=== PATIENT | male | born 1965 | race Caucasian/White ===

== ENCOUNTER 2022-05-27 18:28 | Inpatient (IN) | payer BC, SELFPAY ==
[2022-05-27] VITALS (7 sets, daily range): BP systolic 81–153; BP diastolic 40–77; PULSE 99–170; RESP 18–36; TEMP 36.6; O2SAT 90–95; BMI 46.2
--- NOTE | ~2022-05-27 | XR_ITS ---
EXAMINATION: XR CHEST CLINICAL INFORMATION: Chest pain COMPARISON: 09/09/2019 TECHNIQUE: Frontal view of the chest was obtained. FINDINGS: Low lung volumes. Limited exam also limited from technique. Given this there is no convincing evidence for an acute finding. No obvious failure or infiltrate. There is no effusion. The cardiac silhouette is comparable. The hilar structures do not appear pathologically enlarged. XR/XR chest 1V IMPRESSION: Limited exam. Low lung volumes. No convincing evidence for an acute process.
--- NOTE | ~2022-05-27 | CT_ITS ---
EXAMINATION: CT ANGIOGRAM OF THE CHEST WITH AND WITHOUT CONTRAST (CT PULMONARY ANGIOGRAM FOR PE) CLINICAL INFORMATION: Reason for Exam SOB, tachycardic COMPARISON: None TECHNIQUE: Prior to contrast administration, noncontrast localization images were obtained. Subsequently, multidetector volumetric imaging was performed from the thoracic inlet to below the diaphragms following the administration of 70 mL Omnipaque 350 intravenous contrast. No contrast reaction reported Sagittal, coronal, and MIP oblique sagittal reformatted images were obtained on the CT workstation, uploaded to PACS, and reviewed. This CT examination was performed using dose optimization techniques as appropriate, variously including the following: *Automated exposure control *Adjustment of mA and/or kV according to patient size (this includes techniques or standardized protocols for targeted exams where dose is matched to indication/reason for exam; i.e. extremities or head) *Use of iterative reconstruction technique Total exam dose-length product 653 mGy-cm FINDINGS: QUALITY OF STUDY/CONTRAST BOLUS: Suboptimal. PULMONARY ARTERIES: Significant respiratory motion limits evaluation. No central, main or right upper lobar and left upper and lower lobar pulmonary embolism. Remainder of the lobar and distal vessels are suboptimally evaluated. THORACIC AORTA: No thoracic aortic aneurysm. LUNG: Significant respiratory motion limits evaluation. 4 mm solid right upper lobe pulmonary nodule, 6:217. PLEURA: No pleural effusion or pneumothorax. MEDIASTINUM: Normal heart size. No pericardial effusion. Borderline enlarged mediastinal nodes for example a 1.0 cm short axis right paratracheal node. No evidence of septal bowing or right heart strain. CHEST WALL/AXILLA: No axillary or internal mammary lymphadenopathy. OSSEOUS STRUCTURES: No acute or suspicious osseous abnormality. UPPER ABDOMEN: Unremarkable. No reflux of contrast into the hepatic veins to suggest elevated right heart pressures. CT/CT angio chest PE protocol IMPRESSION: Significant respiratory motion limits evaluation. No central, main or right upper lobar and left upper and lower lobar pulmonary embolism. Remainder of the lobar and distal vessels are suboptimally evaluated. Few borderline enlarged mediastinal nodes of uncertain clinical significance. 4 mm solid right upper lobe pulmonary nodule. Assuming patient has no history of malignancy, recommend follow-up per Fleischner Society recommendations. According to the UPDATED 2017 Fleischner Society recommendations, the advised followup imaging for solid nodules < 6 mm is: LOW RISK PATIENT: No routine follow up. HIGH RISK PATIENT: Optional CT at 12 months.
--- NOTE | 2022-05-27 18:32 | ECG_ITS ---
Test Reason : CHEST PAIN Blood Pressure : / mmHG Vent. Rate : 171 BPM Atrial Rate : 171 BPM P-R Int : 122 ms QRS Dur : 100 ms QT Int : 280 ms P-R-T Axes : 093 109 -51 degrees QTc Int : 472 ms Sinus tachycardia Rightward axis Incomplete right bundle branch block T wave abnormality, consider inferior ischemia Abnormal ECG When compared with ECG of 07-FEB-2016 18:59, Vent. rate has increased BY 77 BPM T wave inversion now evident in Inferior leads Referred By: Joya Kohler Electronically Signed By:ROSALVA FREITAS
--- NOTE | 2022-05-27 18:48 | PC.NURSE ---
Unable to obtain BP in triage area after 3 attempts. No manual cuff available. PT sent back to room with RN awaiting his arrival into the bed aware of his HR. MD aware of HR as well.
--- NOTE | 2022-05-27 18:55 | ECG_ITS ---
Test Reason : TACHYCARDIA Blood Pressure : / mmHG Vent. Rate : 149 BPM Atrial Rate : 000 BPM P-R Int : 000 ms QRS Dur : 112 ms QT Int : 318 ms P-R-T Axes : 000 107 -71 degrees QTc Int : 500 ms Atrial fibrillation with rapid ventricular response Rightward axis Incomplete right bundle branch block ST & T wave abnormality, consider inferior ischemia Abnormal ECG When compared with ECG of 27-MAY-2022 18:35, Atrial fibrillation has replaced Sinus tachycardia Non-specific change in ST segment in Anterior leads Referred By: Joya Kohler Electronically Signed By:ROSALVA FREITAS
[2022-05-27] MEDS: 0.9 % Sodium Chloride 1,000 ML 999 ML IVCONT ×2 (19:03→21:52)
[2022-05-27] MEDS: Metoprolol Tartrate 5 MG/5 ML VIAL IVPUSH ×2 (19:03→20:23)
[2022-05-27 19:08] LABS: MANUAL DIFF FLAG NO
[2022-05-27 19:21] LABS: Basophils Percent Auto 0.3 % (0-2); Eosinophils Percent Auto 0.1 % (0-4); Hematocrit 46.2 % (42.0-52.0); Imm Gran Abs Auto 0.04 X10*3/uL (0.00-0.03); Imm Gran Pct Auto 0.3 % (0.0-0.4); Lymphocytes Absolute Auto 1.3 X10*3/uL (1.2-4.9); Lymphocytes Percent Auto 10.1 % (20-40); Mean Corpuscular HGB Conc 34.6 g/dl (31.0-36.0); Mean Corpuscular Hemoglobin 30.4 pg (27.0-33.0); Mean Corpuscular Volume 87.7 fL (80.0-98.0); Mean Platelet Volume 10.4 fL (9.4-12.4); Monocytes Absolute Auto 0.9 X10*3/uL (0.1-1.2); Monocytes Percent Auto 7.5 % (2-11); Neutrophils Absolute Auto 10.1 x10*3/uL (2.0-8.3); Neutrophils Percent Auto 81.7 % (45-73); Platelet Count 312 X10*3/uL (160-400); Red Blood Count 5.27 X10*6/uL (4.60-5.80); Red Cell Distribution Width 11.9 % (11.0-16.0); White Blood Count 12.3 X10*3/uL (4.8-10.8)
[2022-05-27 19:26] LABS: Anion Gap 16 (12-20); Blood Urea Nitrogen 15 mg/dL (9-16); Calcium 9.3 mg/dL (8.4-10.2); Carbon Dioxide 25 mmol/L (22-29); Chloride 98 mmol/L (96-108); Creatinine Clr Calc Pharmacy 114.9; Estimated Glomerular Filt Rate > 60; Glucose Random 122 mg/dL (60-115); Potassium 3.4 mmol/L (3.3-5.1); Sodium 136 mmol/L (135-145)
--- NOTE | 2022-05-27 19:26 | ED.ARRPALP ---
HPI - Arrhythmia/Palpitations General Chief Complaint: Dyspnea Stated Complaint: possible heart attack Time Seen by Provider: 05/27/22 18:45 Source: patient and family Mode of arrival: ambulatory Limitations: no limitations History of Present Illness HPI narrative: 57-year-old male with history of morbid obesity and HTN who presents to the ER for evaluation of shortness of breath, fatigue and palpitations. Patient was reporting some upset stomach and indigestion, for which he took Tums with no improvement. He also reports a acute on chronic cough. He used an old albuterol inhaler at home around 330 to try to help the cough and shortly after started feeling his heart racing and very fatigued. He was anxious. He developed some difficulty breathing which came on suddenly at home. He denies any chest pain but could feel his heart racing. His pulse was taking at home and was noted to be in the 180s. He was brought to the ER for further evaluation. Patient denies any COPD or asthma. He is not a smoker. He states he has had a cough for the last several months, worse in the morning and tends to be better later in the day. He reports for the last couple of weeks he has had increased indigestion and heartburn. He denies any fever or chills. He denies any abdominal pain, nausea, vomiting. No episodes of diaphoresis today. On arrival to the ER patient is tachycardic to the 170s, appears to be SVT. MD complaint: rapid heart beat and heart racing Onset (ago): hour(s) Duration: constant Severity: moderate Context: change in medication Associated symptoms: shortness of breath, anxiety and cough Treatments prior to arrival: other ( took a dose of his losartan to try to slow down his heart rate) Related Data Home Medications Medication Instructions Recorded Confirmed valsartan 320 1 tab PO DAILY 05/27/22 mg-hydrochlorothiazide 25 mg tablet Allergies Allergy/AdvReac Type Severity Reaction Status Date / Time No Known Allergies Allergy Verified 05/27/22 18:33 Review of Systems Review of Systems: Constitutional: No Fever, No Chills, +Fatigue ENT/Mouth: No sore throat, No Rhinorrhea, No Swallowing Difficulty Eyes: No Eye Pain, No Swelling, No Redness Cardiovascular: No Chest Pain, + SOB, No Orthopnea, No Edema Respiratory: + Cough, No Sputum, No Wheezing, + dyspnea Gastrointestinal: No Nausea, No Vomiting, No Diarrhea, No abdominal Pain, No Hematochezia, No Melena Genitourinary: No Dysuria, No Urinary Frequency, No Hematuria Musculoskeletal: No joint pain, No Myalgias Skin: No Skin Lesions, No rash Neuro: + Weakness, No Numbness, No Dizziness, No Headache Psych: + Anxiety/Panic, No Depression Heme/Lymph: No Bruising, No Lymphadenopathy Endocrine: No Polyuria, No Polydipsia PMFSH Social History Social History Alcohol intake: never Patient Tobacco Use Status: Never used Tobacco Use of substances other than those prescribed or required for medical reasons: No Advance Directives: No Advance Directives Information Provided: No Physical Exam Vital Signs: Vital Signs: Last Vital Signs Temp 97.9 F 05/27/22 18:34 Pulse 158 H 05/27/22 20:08 Resp 18 05/27/22 20:08 BP 120/59 L 05/27/22 20:08 Pulse Ox 95 05/27/22 20:08 O2 Del Method 05/27/22 20:08 BMI result Body Mass Index 46.2 Appearance: Alert. Oriented X3. No acute distress. Eyes: Pupils equal, round and reactive to light. ENT: Pharynx normal. Neck: Normal inspection. Neck supple. no JVD CVS: Tachycardic, regular rehythm. Pulses normal. Respiratory: No respiratory distress. Breath sounds normal. Abdomen: Morbidly obese, Soft and nontender. +BS x4 Skin: Skin warm and dry. Normal skin color. Normal skin turgor. No rashes. Extremities: No lower extremity edema. No calf tenderness. Neuro: Oriented X 3. No motor deficit. No sensory deficit. CN II-XII intact. Non-focal Course Course Course Narrative: 57-year-old male with history of obesity, HTN, ROLANDO noncompliant with CPAP who presents to the ER for evaluation of palpitations, shortness of breath, fatigue and difficulty breathing after using an albuterol inhaler at home. On arrival patient is tachycardic to the 170s, appears to be in SVT. His blood pressure initially unable to be read in the triage room, found to be 151/96. He is not diaphoretic and appears well. He is speaking in complete sentences. 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 Seems to be going in and out of SVT vs atrial fibrillation. Reevaluation(s) Reevaluation #1: Brief improvement in heart rates the low 100s to 120s after 5 of IV Lopressor. Adenosine never given as patient's HR improved to low 100s. Patient's heart rate went back up into the 150s-160s abour 30 mins later, although he is feeling better, minimal symptoms at this time, Except for some tiredness. Not short of breath and not having any chest pain. His troponin was 6.6. Initial EKG did not have any concerning ischemic changes. There was question of short bouts of irregularity, question going in and out of rapid AFib. Third EKG is ordered. His heart rates currently ranging from 140s to 160s, will give IV push of diltiazem and started on a diltiazem infusion. Will get admitted to the hospital for further management and workup. Reevaluation #2: 3rd EKG with rapid afib. new ST depressions. IVF ordered, 2nd troponin pending. Once HR better controlled will admit. Signed out to Dr. Laboy who will assume care and admit the patient. MDM - Arrhythmia/Palpitations Medical Records Attestation: I reviewed the patient's medical records. Lab Data Attestation: I reviewed the patient's lab results. Result diagrams: 05/27/22 19:00 05/27/22 19:00 Labs: Lab Results 05/27/22 05/27/22 05/27/22 Range/Units 19:00 19:00 19:00 WBC 12.3 H (4.8-10.8) X10*3/uL RBC 5.27 (4.60-5.80) X10*6/uL Hgb 16.0 (14.0-18.0) g/dl Hct 46.2 (42.0-52.0) % MCV 87.7 (80.0-98.0) fL MCH 30.4 (27.0-33.0) pg MCHC 34.6 (31.0-36.0) g/dl RDW 11.9 (11.0-16.0) % Plt Count 312 (160-400) X10*3/uL MPV 10.4 (9.4-12.4) fL Immature Gran % (Auto) 0.3 (0.0-0.4) % Neut % (Auto) 81.7 H (45-73) % Lymph % (Auto) 10.1 L (20-40) % [place] % (Auto) 7.5 (2-11) % Eos % (Auto) 0.1 (0-4) % Baso % (Auto) 0.3 (0-2) % Lymph # (Auto) 1.3 (1.2-4.9) X10*3/uL [place] # (Auto) 0.9 (0.1-1.2) X10*3/uL Eos # (Auto) 0.0 (0.0-0.4) X10*3/uL Baso # (Auto) 0.0 (0.0-0.2) X10*3/uL Abs Immat Gran (auto) 0.04 H (0.00-0.03) X10*3/uL Absolute Neuts (auto) 10.1 H (2.0-8.3) x10*3/uL Absolute Nucleated RBC 0.000 (0.0-0.012) X10*3/uL Nucleated RBC % (auto) 0.0 (0.0-0.2) /100WBC PT (10.0-13.1) SEC INR (0.9-1.1) APTT (26.0-36.4) SEC D-Dimer High Sensitivty NG/ML Sodium 136 (135-145) mmol/L Potassium 3.4 (3.3-5.1) mmol/L Chloride 98 (96-108) mmol/L Carbon Dioxide 25 (22-29) mmol/L Anion Gap 16 (12-20) BUN 15 (9-16) mg/dL Creatinine 1.15 (0.5-1.4) mg/dL Estim Creat Clear Calc 114.9 Estimated GFR > 60 Random Glucose 122 H (60-115) mg/dL Calcium 9.3 (8.4-10.2) mg/dL Magnesium 1.9 (1.6-2.6) mg/dL Troponin I High Sens 6.6 (<3.5-35.0) ng/L B-Natriuretic Peptide 11 (<100) pg/mL COVID-19 ([facility]) (Negative) COVID-19 Clin Com 05/27/22 05/27/22 Range/Units 19:00 20:21 WBC (4.8-10.8) X10*3/uL RBC (4.60-5.80) X10*6/uL Hgb (14.0-18.0) g/dl Hct (42.0-52.0) % MCV (80.0-98.0) fL MCH (27.0-33.0) pg MCHC (31.0-36.0) g/dl RDW (11.0-16.0) % Plt Count (160-400) X10*3/uL MPV (9.4-12.4) fL Immature Gran % (Auto) (0.0-0.4) % Neut % (Auto) (45-73) % Lymph % (Auto) (20-40) % [place] % (Auto) (2-11) % Eos % (Auto) (0-4) % Baso % (Auto) (0-2) % Lymph # (Auto) (1.2-4.9) X10*3/uL [place] # (Auto) (0.1-1.2) X10*3/uL Eos # (Auto) (0.0-0.4) X10*3/uL Baso # (Auto) (0.0-0.2) X10*3/uL Abs Immat Gran (auto) (0.00-0.03) X10*3/uL Absolute Neuts (auto) (2.0-8.3) x10*3/uL Absolute Nucleated RBC (0.0-0.012) X10*3/uL Nucleated RBC % (auto) (0.0-0.2) /100WBC PT 13.2 H (10.0-13.1) SEC INR 1.1 (0.9-1.1) APTT 34.3 (26.0-36.4) SEC D-Dimer High Sensitivty 239 NG/ML Sodium (135-145) mmol/L Potassium (3.3-5.1) mmol/L Chloride (96-108) mmol/L Carbon Dioxide (22-29) mmol/L Anion Gap (12-20) BUN (9-16) mg/dL Creatinine (0.5-1.4) mg/dL Estim Creat Clear Calc Estimated GFR Random Glucose (60-115) mg/dL Calcium (8.4-10.2) mg/dL Magnesium (1.6-2.6) mg/dL Troponin I High Sens (<3.5-35.0) ng/L B-Natriuretic Peptide (<100) pg/mL COVID-19 ([facility]) Negative (Negative) COVID-19 Clin Com See Note ECG Data Attestation: I personally reviewed and interpreted this ECG as follows: ECG interpretation date: 05/27/22 ECG interpretation time: 19:59 Prior ECG tracings: not available for review Interpretation: 18:35 - sinus tachycardia, HR 171, normal MA interval, No ST Segment elevations or depressions 18:46 - sinus tachycardia, HR 115 bpm, some buried p-waves, ?some irregularity going in/out afib, no ST segment elevations or depressions 20:58 - afib w RVR, HR 149. new ST depressions in the lateral leads Critical Care Time Critical Care Time Critical Care Time: Yes Total Critical Care Time: 55 Attestation: I have personally provided critical care time exclusive of time spent on separately billable procedures. Time includes review of lab data, radiology results, discussion with consultants, and monitoring for potential decompensation. Intervention performed as documented. Discharge Plan Discharge Clinical Impression: Atrial fibrillation with RVR Patient Disposition: Admitted As Inpatient
[2022-05-27 19:32] LABS: INTERNATIONAL NORM RATIO 1.1 (0.9-1.1); Prothrombin Time 13.2 SEC (10.0-13.1)
[2022-05-27 19:34] LABS: B Type Natriuretic Peptide 11 pg/mL (<100); D Dimer High Sensitivity 239 NG/ML; Troponin-I High Sensitivity 6.6 ng/L (<3.5-35.0)
[2022-05-27 19:35] LABS: Partial Thromboplastin Time 34.3 SEC (26.0-36.4)
[2022-05-27] MEDS: iohexoL 350 MG/ML 100 ML INFUS..BTL IV (20:08)
[2022-05-27 20:40] LABS: COVID-19 Test Negative (Negative); IDNOW Serial# 55D5AD1C
[2022-05-27 20:42] LABS: Magnesium 1.9 mg/dL (1.6-2.6)
--- NOTE | 2022-05-27 20:49 | ECG_ITS ---
Test Reason : RYTHM CHANGE Blood Pressure : / mmHG Vent. Rate : 126 BPM Atrial Rate : 000 BPM P-R Int : 000 ms QRS Dur : 110 ms QT Int : 336 ms P-R-T Axes : 000 101 150 degrees QTc Int : 486 ms Atrial fibrillation with rapid ventricular response Rightward axis Incomplete right bundle branch block Nonspecific T wave abnormality Abnormal ECG When compared with ECG of 27-MAY-2022 20:58, Nonspecific T wave abnormality has replaced inverted T waves in Inferior leads Nonspecific T wave abnormality, worse in Lateral leads Referred By: Joya Kohler Electronically Signed By:ROSALVA FREITAS
[2022-05-27] MEDS: dilTIAZem HCL 50 MG/10 ML VIAL 15 MG IVPUSH (21:18)
[2022-05-27] MEDS: dilTIAZem HCL 125 MG in 0.9 % Sodium Chloride 100 ML 10 MG IVCONT (21:38)
--- NOTE | 2022-05-27 21:47 | PHA.MEDREC ---
Pharmacy Consult ? Medication Reconciliation Pharmacy has completed the medication reconciliation.
--- NOTE | 2022-05-27 22:05 | P.HPHOSP_ITS ---
History of Present Illness Date of Service: 05/27/22 Chief Complaint: Palpitations 57-year-old male with a past medical history of hypertension, obesity presented to the hospital today with a chief complaint of palpitations. Patient reports that for the past 2 days has been having palpitations, denies any associated lightheadedness, dizziness, shortness of breath, chest pain. Patient denies any fever chills cough or sputum production. Denies any recent travel or sick contacts. Denies any toxic habits. Denies any numbness tingling or focal weakness. Review of all other systems is negative except mentioned above ER course: Per ER team patient on presentation noted to be in AFib with rapid ventricular response; patient was subsequently placed on diltiazem drip. Admitted to the hospital for further management PMFSH Pertinent family history: Mother: Bone cancer Social History Alcohol intake: never Patient Tobacco Use Status: Never used Tobacco Use of substances other than those prescribed or required for medical reasons: No Advance Directives: No Advance Directives Information Provided: No Meds Allergies Allergy/AdvReac Type Severity Reaction Status Date / Time No Known Allergies Allergy Verified 05/27/22 18:33 Active Medications: Current Medications Acetaminophen (Acetaminophen 325 Mg Tablet) 650 mg PO Q6H PRN PRN Reason: Pain, Mild (Pain Scale 1-3) Enoxaparin Sodium (Enoxaparin Sodium 40 Mg/0.4 Ml Syringe) 40 mg SUBCUT Q24H [facility] Diltiazem HCl 125 mg/ Sodium (Chloride) 125 mls @ 0 mls/hr IVCONT .Q0M [facility]; Protocol Last Admin: 05/27/22 21:38 Dose: 10 mg/hr, 10 mls/hr Sodium Chloride (Ns) 1,000 mls @ 999 mls/hr IVCONT .Q1H1M [facility] Stop: 05/27/22 22:15 Last Admin: 05/27/22 21:52 Dose: 999 mls/hr Magnesium Sulfate/Dextrose (Magnesium Sulfate/D5w) 1 gm in 100 mls @ 100 mls/hr IV ONCE ONE Stop: 05/27/22 22:12 Melatonin (Melatonin 3 Mg Tablet) 6 mg PO BEDTIME PRN PRN Reason: Insomnia Pharmacy Consult (Consult Rx Perform Med Rec) 1 each MISCELLANE ONCE PRN PRN Reason: Consult order Senna (Sennosides 8.6 Mg Tablet) 17.2 mg PO BEDTIME PRN PRN Reason: Constipation Sodium Chloride (0.9 % Sodium Chloride Flush 3 Ml Syringe) 3 ml IVFLUSH QSHIFT RAI Home Medications Medication Instructions Recorded Confirmed Last Taken Type valsartan 320 1 tab PO DAILY 05/27/22 05/27/22 05/27/22 History mg-hydrochlorothiazide 25 mg tablet Physical Exam Vital Signs and Narrative: Vital Signs: Last Vital Signs Temp 97.9 F 05/27/22 18:34 Pulse 162 H 05/27/22 21:19 Resp 36 H 05/27/22 21:19 BP 111/56 L 05/27/22 21:19 Pulse Ox 92 05/27/22 21:19 O2 Del Method 05/27/22 21:19 BMI result Body Mass Index 46.2 Gen: Appears be in no acute distress. Elevated BMI HEENT: NCAT, Moist mucosa. Pulmonary: Vesicular breath sounds, fair air entry CVS: Normal S1-S2 Abdomen: BS+, Soft, Nontender Extremities: Warm well perfused Neuro: Alert and awake. Results Labs CBC and Chem 7: 05/27/22 19:00 05/27/22 19:00 Labs: Laboratory Results - last 24 hr 05/27/22 05/27/22 05/27/22 19:00 19:00 19:00 MCV 87.7 MCH 30.4 MCHC 34.6 RDW 11.9 Plt Count 312 MPV 10.4 Immature Gran % (Auto) 0.3 Neut % (Auto) 81.7 H Lymph % (Auto) 10.1 L [place] % (Auto) 7.5 Eos % (Auto) 0.1 Baso % (Auto) 0.3 Lymph # (Auto) 1.3 [place] # (Auto) 0.9 Eos # (Auto) 0.0 Baso # (Auto) 0.0 Abs Immat Gran (auto) 0.04 H Absolute Neuts (auto) 10.1 H Absolute Nucleated RBC 0.000 Nucleated RBC % (auto) 0.0 PT INR APTT D-Dimer High Sensitivty Anion Gap 16 Estim Creat Clear Calc 114.9 Estimated GFR > 60 Random Glucose 122 H Calcium 9.3 Magnesium 1.9 B-Natriuretic Peptide 11 COVID-19 (IRENE) COVID-19 Clin Com 05/27/22 05/27/22 19:00 20:21 MCV MCH MCHC RDW Plt Count MPV Immature Gran % (Auto) Neut % (Auto) Lymph % (Auto) [place] % (Auto) Eos % (Auto) Baso % (Auto) Lymph # (Auto) Heard # (Auto) Eos # (Auto) Baso # (Auto) Abs Immat Gran (auto) Absolute Neuts (auto) Absolute Nucleated RBC Nucleated RBC % (auto) PT 13.2 H INR 1.1 APTT 34.3 D-Dimer High Sensitivty 239 Anion Gap Estim Creat Clear Calc Estimated GFR Random Glucose Calcium Magnesium B-Natriuretic Peptide COVID-19 (IRENE) Negative COVID-19 Clin Com See Note Imaging Radiologist's Impressions: Impressions Chest X-Ray 05/27/22 19:45 IMPRESSION: Limited exam. Low lung volumes. No convincing evidence for an acute process. Chest CTA 05/27/22 20:27 IMPRESSION: Significant respiratory motion limits evaluation. No central, main or right upper lobar and left upper and lower lobar pulmonary embolism. Remainder of the lobar and distal vessels are suboptimally evaluated. Few borderline enlarged mediastinal nodes of uncertain clinical significance. 4 mm solid right upper lobe pulmonary nodule. Assuming patient has no history of malignancy, recommend follow-up per Fleischner Society recommendations. According to the UPDATED 2017 Fleischner Society recommendations, the advised followup imaging for solid nodules < 6 mm is: LOW RISK PATIENT: No routine follow up. HIGH RISK PATIENT: Optional CT at 12 months. Assessment and Plan (1) Atrial fibrillation with RVR: Status: Acute Plan 57-year-old male with a past medical history of hypertension, obesity presented to the hospital today with a chief complaint of palpitations. Noted to be in rapid AFib. Admitted for further management. Rapid AFib: Patient currently on diltiazem drip. Patient briefly converted to sinus but went back again to AFib. Will also give the patient on metoprolol 25 mg b.i.d. Patient's Rosalio Vasc score is 1 Cardiology consult Echocardiogram TSH History of hypertension: Hold home valsartan in order provide room for blood pressure DVT prophylaxis: Lovenox Code status: Full code Quality Stroke Does the patient have a stroke diagnosis?: No VTE Prior VTE?: No VTE Risk Level:: Medical - moderate - high VTE Device Contraindication: Treatment Not Indicated VTE Drug Contraindication: N/A - Med Ordered
--- NOTE | 2022-05-27 22:06 | PC.NURSE ---
Decrease Cardizem gtt to 5mg per S. MD Narda
[2022-05-27] MEDS: Enoxaparin Sodium 40 MG/0.4 ML SYRINGE SUBCUT (22:08)
[2022-05-27] MEDS: Magnesium Sulfate/D5W 1 GM/100 ML PIGGYBACK IV (22:09)
[2022-05-27] MEDS: Potassium Chloride ER 20 MEQ TAB.ER.PRT 40 MEQ PO (22:11)
[2022-05-27] MEDS: Metoprolol Tartrate 25 MG TABLET PO (22:24)
[2022-05-27 23:02] LABS: Troponin-I High Sensitivity 10.7 ng/L (<3.5-35.0)
[2022-05-28] VITALS (17 sets, daily range): BP systolic 100–162; BP diastolic 54–96; PULSE 83–165; RESP 14–26; TEMP 37.1–37.8; O2SAT 93–96
--- NOTE | 2022-05-28 00:35 | PC.NURSE ---
Addendum entered by Marcia Espinoza RN 05/28/22 01:24: At 00:52 pt started on drip again, per phuong. Order for metoprolol put in but canceled per Phuong, instructed not to administer. Original Note: Per Phuong, diltiazem drip is stopped. EKG being taken now. Pt is up walking with steady gait.
--- NOTE | 2022-05-28 03:24 | PC.NURSE ---
Cardizem gtt increased from 10mg/hr to 15mg/hr re: HR increasing again to 160s. Pt. denies CP, palpitations and/or SOB at this time.
--- NOTE | 2022-05-28 03:49 | PC.NURSE ---
Cardizem gtt decreased from 15mg/hr back down to 10mg/hr d/t HR maintaining below parameters of 90
[2022-05-28] MEDS: Metoprolol Tartrate 5 MG/5 ML VIAL IVPUSH ×3 (04:00→19:53)
--- NOTE | 2022-05-28 04:03 | PC.NURSE ---
Kezia Baca MD ordered PRN Lopressor 5mg IVP Q6hrs for HR > 125
[2022-05-28 06:11] LABS: Basophils Percent Auto 0.2 % (0-2); Hematocrit 42.4 % (42.0-52.0); Hemoglobin 14.1 g/dl (14.0-18.0); Imm Gran Abs Auto 0.13 X10*3/uL (0.00-0.03); Imm Gran Pct Auto 0.7 % (0.0-0.4); Lymphocytes Absolute Auto 1.1 X10*3/uL (1.2-4.9); MANUAL DIFF FLAG SCAN; Mean Corpuscular HGB Conc 33.3 g/dl (31.0-36.0); Mean Corpuscular Hemoglobin 29.8 pg (27.0-33.0); Mean Corpuscular Volume 89.6 fL (80.0-98.0); Mean Platelet Volume 10.2 fL (9.4-12.4); Monocytes Absolute Auto 1.6 X10*3/uL (0.1-1.2); Monocytes Percent Auto 8.6 % (2-11); Neutrophils Absolute Auto 15.9 x10*3/uL (2.0-8.3); Neutrophils Percent Auto 84.5 % (45-73); Platelet Count 255 X10*3/uL (160-400); Red Blood Count 4.73 X10*6/uL (4.60-5.80); Red Cell Distribution Width 12.1 % (11.0-16.0); SCAN SMEAR FLAG 1; White Blood Count 18.9 X10*3/uL (4.8-10.8)
[2022-05-28 06:24] LABS: Anion Gap 16 (12-20); Blood Urea Nitrogen 13 mg/dL (9-16); Calcium 8.4 mg/dL (8.4-10.2); Carbon Dioxide 25 mmol/L (22-29); Chloride 100 mmol/L (96-108); Creatinine Clr Calc Pharmacy 140.5; Estimated Glomerular Filt Rate > 60; Glucose Random 119 mg/dL (60-115); Potassium 3.5 mmol/L (3.3-5.1); Sodium 137 mmol/L (135-145)
[2022-05-28 06:26] LABS: Magnesium 2.1 mg/dL (1.6-2.6)
[2022-05-28 06:38] LABS: SLIDE REVIEW VERIFIED
--- NOTE | 2022-05-28 09:11 | PC.NURSE ---
Pt O2 dropping to mid 80s when asleep, low 90s when awake. Placed pt on 1 L nasal cannula, O2 up to 95%. Pt tolerating well. States no difficulty breathing.
--- NOTE | 2022-05-28 10:28 | P.CONCA_ITS ---
History of Present Illness History of Present Illness Date of Service: 05/28/22 Requesting physician: Avery Nuñez Consult reason: atrial fibrillation Chief complaint: Rapid Afib Narrative: Thank you for referring Solomon in cardiology consultation today for atrial fibrillation. He is a 57-year-old male who is noncompliant with this prior treatment for hypertension obstructive sleep apnea and is feeling very guilty about it. Patient came to the hospital because he did not feel well yesterday and his who is a nurse took his pulse and noticed that he was racing at 180 beats per minute he did not look well and he was brought to the emergency room. He was having symptoms of palpitation rapid heart rate. He did not have any symptoms of lightheadedness, syncope. Was short of breath. Denies have any orthopnea, PND, leg edema recently. No chest discomfort. He came to the hospital was noted to have rapid AFib and was started on IV Cardizem drip. Since then overnight he has converted back to sinus rhythm. He feels well. His blood pressure is better controlled right now. However at home he says blood pressure is elevated but he does not take his medications losartan as prescribed. He has no prior history of heart disease. He has never had atrial fibrillation. Denies any history of coronary artery disease vascular events or stroke. He has never prior cardiac workup as per him. 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 He does not exercise on a routine basis. Review of Systems Constitutional: Constitutional: Reports no additional constitutional complaint s Eyes: Eyes: Reports no additional eye complaints Cardiovascular: Cardiovascular: Denies chest pain, Denies rapid heart rate, Denies leg edema, Denies lightheadedness, Denies palpitations and Reports dyspnea on exertion Respiratory: Respiratory: Reports no additional respiratory complaints and Reports dyspnea on exertion Gastrointestinal: Gastrointestinal: Reports no additional gastrointestinal complaints Genitourinary: Genitourinary: Reports no additional male genitourinary complaints Musculoskeletal: Musculoskeletal: Reports no additional musculoskeletal complaints Integumentary/Breasts: Skin/Breast: Reports system reviewed and no additional complaints, except as docu Neurologic: Reports system reviewed and no additional complaints, except as documented Psychiatric: Psychiatric: Reports no additional psychiatric complaints Endocrine: Endocrine: Reports no additional endocrine complaints and Denies palpitations Hematologic/Lymphatic: Hematologic/Lymphatic: Reports no additional hematologic/lymphatic complaints Allergic/Immunologic: Allergic/Immunologic: Reports no additional allergic/immunologic complaints [facility] Past Medical History Medical History Atrial fibrillation with RVR HTN (hypertension) Obstructive sleep apnea Social History Social History Alcohol intake: never Patient Tobacco Use Status: Never used Tobacco Use of substances other than those prescribed or required for medical reasons: No Advance Directives: No Advance Directives Information Provided: No Meds Allergies Allergy/AdvReac Type Severity Reaction Status Date / Time No Known Allergies Allergy Verified 05/27/22 18:33 Active Medications: Current Medications Acetaminophen (Acetaminophen 325 Mg Tablet) 650 mg PO Q6H PRN PRN Reason: Pain, Mild (Pain Scale 1-3) Enoxaparin Sodium (Enoxaparin Sodium 40 Mg/0.4 Ml Syringe) 40 mg SUBCUT Q24H [facility] Last Admin: 05/27/22 22:08 Dose: 40 mg Diltiazem HCl 125 mg/ Sodium (Chloride) 125 mls @ 0 mls/hr IVCONT .Q0M [facility]; Protocol Last Titration: 05/28/22 04:42 Dose: 5 mg/hr, 5 mls/hr Melatonin (Melatonin 3 Mg Tablet) 6 mg PO BEDTIME PRN PRN Reason: Insomnia Metoprolol Tartrate (Metoprolol Tartrate 25 Mg Tablet) 25 mg PO BID [facility]; Protocol Metoprolol Tartrate (Metoprolol Tartrate 5 Mg/5 Ml Vial) 5 mg IVPUSH Q6H PRN PRN Reason: HR>125 Last Admin: 05/28/22 04:00 Dose: 5 mg Pharmacy Consult (Consult Rx Perform Med Rec) 1 each MISCELLANE ONCE PRN PRN Reason: Consult order Senna (Sennosides 8.6 Mg Tablet) 17.2 mg PO BEDTIME PRN PRN Reason: Constipation Sodium Chloride (0.9 % Sodium Chloride Flush 3 Ml Syringe) 3 ml IVFLUSH QSHIFT [facility] Last Admin: 05/28/22 08:22 Dose: Not Given Home Medications Medication Instructions Recorded Confirmed Last Taken Type valsartan 320 1 tab PO DAILY 05/27/22 05/27/22 05/27/22 History mg-hydrochlorothiazide 25 mg tablet Physical Exam 2 Vital Signs: Vital Signs: Last Vital Signs Temp 98.7 F 05/28/22 00:19 Pulse 90 05/28/22 09:01 Resp 24 H 05/28/22 09:01 BP 128/82 05/28/22 04:42 Pulse Ox 93 05/28/22 09:01 O2 Del Method 05/28/22 09:01 BMI result Body Mass Index 46.2 Const: General: cooperative, comfortable, no acute distress, alert and awake Nutritional Appearance: obese morbidly obese Orientation/consciousness: oriented to time HEENT: Head: Yes normocephalic and Yes atraumatic Neck: Neck: Yes trachea midline, Yes supple and Yes no JVD Chest: Chest palpation & inspection: normal inspection of the chest Resp: Effort & Inspection: normal respiratory effort Auscultation: clear to auscultation bilaterally Cardio: Jugular venous distension: no JVD Palpation: normal PMI Rate: regular rate Rhythm: regular rhythm Heart sounds: S1 normal heart sound present, S2 normal heart sound present, no click, no gallops, no murmurs and no rubs GI: Inspection: Yes Abdominal panniculus present and Yes obesity Auscultation: normal bowel sounds Skin: General skin exam: no rashes or lesions noted Neuro: General: oriented to time and no focal motor deficits Extrem: General: Yes no clubbing, cyanosis or edema Psych: Appearance: grossly normal Objective Labs and Meds Result diagrams: 05/28/22 05:53 05/28/22 05:53 Lab results: Laboratory Results - last 24 hr 05/27/22 05/27/22 05/27/22 19:00 19:00 19:00 WBC 12.3 H RBC 5.27 Hgb 16.0 Hct 46.2 MCV 87.7 MCH 30.4 MCHC 34.6 RDW 11.9 Plt Count 312 MPV 10.4 Immature Gran % (Auto) 0.3 Neut % (Auto) 81.7 H Lymph % (Auto) 10.1 L [place] % (Auto) 7.5 Eos % (Auto) 0.1 Baso % (Auto) 0.3 Lymph # (Auto) 1.3 [place] # (Auto) 0.9 Eos # (Auto) 0.0 Baso # (Auto) 0.0 Abs Immat Gran (auto) 0.04 H Absolute Neuts (auto) 10.1 H Absolute Nucleated RBC 0.000 Nucleated RBC % (auto) 0.0 Smear Tech's Comments PT INR APTT D-Dimer High Sensitivty Sodium 136 Potassium 3.4 Chloride 98 Carbon Dioxide 25 Anion Gap 16 BUN 15 Creatinine 1.15 Estim Creat Clear Calc 114.9 Estimated GFR > 60 Random Glucose 122 H Calcium 9.3 Magnesium 1.9 Troponin I High Sens 6.6 B-Natriuretic Peptide 11 COVID-19 ([facility]) COVID-19 Clin Com 05/27/22 05/27/22 05/27/22 19:00 20:21 22:11 WBC RBC Hgb Hct MCV MCH MCHC RDW Plt Count MPV Immature Gran % (Auto) Neut % (Auto) Lymph % (Auto) [place] % (Auto) Eos % (Auto) Baso % (Auto) Lymph # (Auto) [place] # (Auto) Eos # (Auto) Baso # (Auto) Abs Immat Gran (auto) Absolute Neuts (auto) Absolute Nucleated RBC Nucleated RBC % (auto) Smear Tech's Comments PT 13.2 H INR 1.1 APTT 34.3 D-Dimer High Sensitivty 239 Sodium Potassium Chloride Carbon Dioxide Anion Gap BUN Creatinine Estim Creat Clear Calc Estimated GFR Random Glucose Calcium Magnesium Troponin I High Sens 10.7 D B-Natriuretic Peptide COVID-19 ([facility]) Negative COVID-19 [facility] Com See Note 05/28/22 05/28/22 05/28/22 05:53 05:53 05:53 WBC 18.9 H RBC 4.73 Hgb 14.1 Hct 42.4 MCV 89.6 MCH 29.8 MCHC 33.3 RDW 12.1 Plt Count 255 MPV 10.2 Immature Gran % (Auto) 0.7 H Neut % (Auto) 84.5 H Lymph % (Auto) 6.0 L [place] % (Auto) 8.6 Eos % (Auto) 0.0 Baso % (Auto) 0.2 Lymph # (Auto) 1.1 L [place] # (Auto) 1.6 H Eos # (Auto) 0.0 Baso # (Auto) 0.0 Abs Immat Gran (auto) 0.13 H Absolute Neuts (auto) 15.9 H Absolute Nucleated RBC 0.000 Nucleated RBC % (auto) 0.0 Smear Tech's Comments VERIFIED PT INR APTT D-Dimer High Sensitivty Sodium 137 Potassium 3.5 Chloride 100 Carbon Dioxide 25 Anion Gap 16 BUN 13 Creatinine 0.94 Estim Creat Clear Calc 140.5 Estimated GFR > 60 Random Glucose 119 H Calcium 8.4 D Magnesium 2.1 Troponin I High Sens B-Natriuretic Peptide COVID-19 ([facility]) COVID-19 Clin Com Imaging Radiologist's impression: Impressions Chest X-Ray 05/27/22 19:45 IMPRESSION: Limited exam. Low lung volumes. No convincing evidence for an acute process. Chest CTA 05/27/22 20:27 IMPRESSION: Significant respiratory motion limits evaluation. No central, main or right upper lobar and left upper and lower lobar pulmonary embolism. Remainder of the lobar and distal vessels are suboptimally evaluated. Few borderline enlarged mediastinal nodes of uncertain clinical significance. 4 mm solid right upper lobe pulmonary nodule. Assuming patient has no history of malignancy, recommend follow-up per Fleischner Society recommendations. According to the UPDATED 2017 Fleischner Society recommendations, the advised followup imaging for solid nodules < 6 mm is: LOW RISK PATIENT: No routine follow up. HIGH RISK PATIENT: Optional CT at 12 months. Assessment and Plan (1) Paroxysmal atrial fibrillation: Status: Acute New onset paroxysmal atrial fibrillation this middle-aged man with most likely trigger factors being obstructive sleep apnea with underlying risk factors of hypertension, obesity as well as untreated sleep apnea. Discussed with him about management of atrial fibrillation. He has paroxysmal atrial fibrillation with feeling better in sinus rhythm. Will continue to pursue rhythm control approach. Discussed with him about pathophysiology of atrial fibrillation management in details. We discussed about risk of stroke with CHADSVASc score of at least 1. Started on full oral anticoagulation Xarelto 20 mg daily. Will obtain echocardiogram to assess for biatrial chamber size and determine long- term use of oral anticoagulation therapy at that point time. Will also require stress test as outpatient. Her more importantly in the short term will require aggressive treatment of blood pressure. See below. Also will require referral to sleep specialist for evaluation treatment of sleep apnea as soon as possible. In the long run continue participate in weight loss program needs to be pursued. He understands and is agreeable to this management plan. Patient can be discharged home today on Toprol-XL 50 mg and Xarelto 20 mg daily. (2) HTN (hypertension): Status: Acute Longstanding history of hypertension with poor compliance to treatment. He said has no obvious side effects to therapy. He has just been not attentive to treating his blood pressure. Advised to monitor blood pressure at home on a regular basis. Low-salt diet was discussed. Treatment of sleep apnea needs to be pursued. Will start him on Toprol XL 50 mg a day. Follow-up blood pressure check as outpatient and then further titrate his medications as needed. Hold off on losartan therapy at this point time. Will follow up with him as an outpatient. Procedures Date of Service Date of Service: 05/28/22
[2022-05-28] MEDS: Famotidine 20 MG TABLET PO (11:06)
[2022-05-28] MEDS: Magnesium Hydrox/Alum Hydrox 30 ML ORAL.SUSP PO (11:06)
--- NOTE | 2022-05-28 12:24 | HO.PM.IMPN ---
Subjective Subjective Date of Service: 05/28/22 Interval History: Admitted overnight with atrial fibrillation and RVR, complaining of heartburn and lower abdominal cramping, denies chest pain, no palpitation, denies lightheadedness and dizziness patient is noncompliant with his antihypertensive medications and has not been using CPAP. Review of Systems [employer] no headache no dizziness CVS no chest pain, no palpitation General no fevers no chills no urinary symptoms of urgency or frequency. Review of Systems: Yes all other systems are reviewed and are negative Physical Exam Vital Signs: Vital Signs: Last Vital Signs Temp 98.7 F 05/28/22 00:19 Pulse 98 05/28/22 11:09 Resp 20 05/28/22 11:09 BP 128/82 05/28/22 04:42 Pulse Ox 95 05/28/22 11:09 O2 Del Method 05/28/22 11:09 O2 Flow Rate 1 05/28/22 11:09 BMI result Body Mass Index 46.2 Const: Other: General awake alert, morbidly obese, in no acute distress. Anicteric sclera Neck no JVD. CVS regular rate rhythm, Respiratory lungs clear to auscultation, no respiratory distress, no wheeze, no rhonchi. Gastrointestinal abdomen soft, nontender, obese, bowel sounds audible, no guarding , no rigidity. Extremities no edema. Neuro nonfocal Skin no rash Psych appropriate affect Objective Data Active Medications Acetaminophen (Acetaminophen 325 Mg Tablet) 650 mg PO Q6H PRN PRN Reason: Pain, Mild (Pain Scale 1-3) Enoxaparin Sodium (Enoxaparin Sodium 40 Mg/0.4 Ml Syringe) 40 mg SUBCUT Q24H [facility] Last Admin: 05/27/22 22:08 Dose: 40 mg Documented By: JUMANA Melatonin (Melatonin 3 Mg Tablet) 6 mg PO BEDTIME PRN PRN Reason: Insomnia Metoprolol Tartrate (Metoprolol Tartrate 5 Mg/5 Ml Vial) 5 mg IVPUSH Q6H PRN PRN Reason: HR>125 Last Admin: 05/28/22 04:00 Dose: 5 mg Documented By: JUMANA Metoprolol Tartrate (Metoprolol Tartrate 25 Mg Tablet) 25 mg PO QID [facility]; Protocol Pharmacy Consult (Consult Rx Perform Med Rec) 1 each MISCELLANE ONCE PRN PRN Reason: Consult order Senna (Sennosides 8.6 Mg Tablet) 17.2 mg PO BEDTIME PRN PRN Reason: Constipation Sodium Chloride (0.9 % Sodium Chloride Flush 3 Ml Syringe) 3 ml IVFLUSH QSHIFT [facility] Last Admin: 05/28/22 08:22 Dose: Not Given Documented By: GOLDEN Non-Admin Reason: IV Running Labs CBC & Chem 7: 05/28/22 05:53 05/28/22 05:53 Labs: Laboratory Results - last 24 hr 05/27/22 05/27/22 05/27/22 19:00 19:00 19:00 MCV 87.7 MCH 30.4 MCHC 34.6 RDW 11.9 Plt Count 312 MPV 10.4 Immature Gran % (Auto) 0.3 Neut % (Auto) 81.7 H Lymph % (Auto) 10.1 L [place] % (Auto) 7.5 Eos % (Auto) 0.1 Baso % (Auto) 0.3 Lymph # (Auto) 1.3 [place] # (Auto) 0.9 Eos # (Auto) 0.0 Baso # (Auto) 0.0 Abs Immat Gran (auto) 0.04 H Absolute Neuts (auto) 10.1 H Absolute Nucleated RBC 0.000 Nucleated RBC % (auto) 0.0 Smear Tech's Comments PT INR APTT D-Dimer High Sensitivty Anion Gap 16 Estim Creat Clear Calc 114.9 Estimated GFR > 60 Random Glucose 122 H Calcium 9.3 Magnesium 1.9 B-Natriuretic Peptide 11 COVID-19 ([facility]) COVID-19 Clin Com 05/27/22 05/27/22 05/28/22 19:00 20:21 05:53 MCV 89.6 MCH 29.8 MCHC 33.3 RDW 12.1 Plt Count 255 MPV 10.2 Immature Gran % (Auto) 0.7 H Neut % (Auto) 84.5 H Lymph % (Auto) 6.0 L [place] % (Auto) 8.6 Eos % (Auto) 0.0 Baso % (Auto) 0.2 Lymph # (Auto) 1.1 L [place] # (Auto) 1.6 H Eos # (Auto) 0.0 Baso # (Auto) 0.0 Abs Immat Gran (auto) 0.13 H Absolute Neuts (auto) 15.9 H Absolute Nucleated RBC 0.000 Nucleated RBC % (auto) 0.0 Smear Tech's Comments VERIFIED PT 13.2 H INR 1.1 APTT 34.3 D-Dimer High Sensitivty 239 Anion Gap Estim Creat Clear Calc Estimated GFR Random Glucose Calcium Magnesium B-Natriuretic Peptide COVID-19 ([facility]) Negative COVID-19 Clin Com See Note 05/28/22 05/28/22 05:53 05:53 MCV MCH MCHC RDW Plt Count MPV Immature Gran % (Auto) Neut % (Auto) Lymph % (Auto) [place] % (Auto) Eos % (Auto) Baso % (Auto) Lymph # (Auto) [place] # (Auto) Eos # (Auto) Baso # (Auto) Abs Immat Gran (auto) Absolute Neuts (auto) Absolute Nucleated RBC Nucleated RBC % (auto) Smear Tech's Comments PT INR APTT D-Dimer High Sensitivty Anion Gap 16 Estim Creat Clear Calc 140.5 Estimated GFR > 60 Random Glucose 119 H Calcium 8.4 D Magnesium 2.1 B-Natriuretic Peptide COVID-19 ([facility]) COVID-19 Clin Com Assessment and Plan (1) Obstructive sleep apnea: Status: Acute (2) HTN (hypertension): Status: Acute (3) Paroxysmal atrial fibrillation: Status: Acute Plan 57-year-old male with a past medical history of hypertension, obesity presented to the hospital today with a chief complaint of palpitations.? Noted to be in rapid AFib.? Admitted for further management.? New onset atrial fibrillation with RVR Denies chest pain, no palpitation, normal troponin converted to normal sinus rhythm this a.m. but now in and out of AFib is status post IV Cardizem drip Will place patient on metoprolol 25 mg q.6 hours Chest vascular score of 1 is started on Xarelto 20 mg Seen by Cardiology they recommend outpatient workup But since patient continued to have recurrent episodes of AFib with RVR will continue tele monitor Check TSH/CTA showed no PE but showed 4 mm solid right upper lobe nodule recommend CT chest in 12 months History of hypertension: Non compliant, DC valsartan placed on metoprolol Morbid obesity weight reduction and gradual exercise recommended, overweight contributing to obstructive sleep apnea now AFib Obstructive sleep apnea patient noncompliant with CPAP recommend follow-up with pulmonology Abdominal cramping/heartburn treated with as needed Maalox/Pepcid follow clinical course, benign exam Leukocytosis chest x-ray showed no abnormality, will check urinalysis follow clinical course, repeat CBC DVT prophylaxis:? Xarelto Code status: Full code Patient need continued inpatient hospitalization due to recurrent atrial fibrillation with RVR requiring 4 as needed IV metoprolol Quality Stroke Does the patient have a stroke diagnosis?: No VTE Prior VTE?: No VTE Risk Level:: Medical - moderate - high VTE Device Contraindication: Treatment Not Indicated VTE Drug Contraindication: N/A - Med Ordered
[2022-05-28] MEDS: Metoprolol Tartrate 25 MG TABLET PO ×3 (12:35→22:49)
--- NOTE | 2022-05-28 12:57 | PC.NURSE ---
Gypsy griffin d/c at 1136 per md. Maintaining good heart rate in 80-90s until 1218 when pt had episode of tachycardia in the 160s. Dr. Nuñez notified. 5mg Lopressor given per NOV. Pt now back in 90s for hr. Oral Lopressor was also given per NOV.
[2022-05-28 13:15] LABS: Thyroid Stimulating Hormone 1.91 uIU/mL (0.32-4.0)
[2022-05-28] MEDS: 0.9 % Sodium Chloride Flush 3 ML SYRINGE IVFLUSH ×2 (18:30→19:30)
[2022-05-28] MEDS: Rivaroxaban 20 MG TABLET PO (19:29)
[2022-05-28] MEDS: Acetaminophen 325 MG TABLET 650 MG PO (19:29)
[2022-05-28 22:53] LABS: Appearance Urine Cloudy; Color Urine Dark Yellow; Glucose Urine UA Negative (Negative); Leukocyte Esterase Urine Moderate (2+) (Negative); Nitrite Urine Negative (Negative); Specific Gravity - Urine 1.025 (1.005-1.025); Urine Blood Trace (Negative); Urine Ketones Trace mg/dL (Negative); Urine Protein 100 (2+) mg/dL (Neg-Trace)
[2022-05-28 22:58] LABS: Bacteria Urine 3+ (None Seen); Hyaline Casts Urine 0-2 /LPF (0-2); WBC Urine >50 /HPF (0-5)
[2022-05-29] VITALS (11 sets, daily range): BP systolic 96–139; BP diastolic 59–78; PULSE 79–160; RESP 16–22; TEMP 36.4–36.8; O2SAT 93–98
--- NOTE | 2022-05-29 00:01 | PM.EVENT ---
Event Note Date of Service: 05/29/22 Event Note: UTI: s/w ceftriaxone. Sent cultures
[2022-05-29] MEDS: cefTRIAXone sodium 1 GM in 0.9 % Sodium Chloride 50 ML IV ×2 (00:23→19:53)
[2022-05-29] MEDS: Metoprolol Tartrate 5 MG/5 ML VIAL IVPUSH ×4 (01:19→22:44)
[2022-05-29] MEDS: Omeprazole 20 MG CAPSULE.DR PO (06:30)
[2022-05-29 07:03] LABS: Hematocrit 42.4 % (42.0-52.0); Hemoglobin 14.2 g/dl (14.0-18.0); Mean Corpuscular HGB Conc 33.5 g/dl (31.0-36.0); Mean Corpuscular Hemoglobin 30.1 pg (27.0-33.0); Mean Platelet Volume 10.6 fL (9.4-12.4); Platelet Count 294 X10*3/uL (160-400); Red Blood Count 4.71 X10*6/uL (4.60-5.80); Red Cell Distribution Width 12.2 % (11.0-16.0); White Blood Count 17.6 X10*3/uL (4.8-10.8)
[2022-05-29] MEDS: Metoprolol Tartrate 25 MG TABLET PO ×4 (09:14→19:54)
[2022-05-29] MEDS: 0.9 % Sodium Chloride Flush 3 ML SYRINGE IVFLUSH ×2 (09:14→19:54)
[2022-05-29] MEDS: Dronedarone HCl 400 MG TABLET PO ×2 (10:17→19:54)
[2022-05-29] MEDS: ondansetron HCL 4 MG/2 ML VIAL IVPUSH (10:17)
--- NOTE | 2022-05-29 11:11 | PM.PNCARD ---
Subjective Subjective Date of Service: 05/29/22 Principal diagnosis: Paroxysmal atrial fibrillation Interval history: patient yesterday and overnight developed recurrent atrial fibrillation rapid ventricular response. This morning back in normal sinus rhythm. Does not feel well when he is in atrial fibrillation cannot describe further but feels palpitation. However he said this morning does not feel well and feels nauseous. Noted to have UTI. Also noted to have hypoxemia yesterday at rest sitting. Overnight he also has hypoxemia. Chest CTA was done and there is no evidence of significant pulmonary embolism. Review of Systems Constitutional: Denies body ache(s), Denies chills and Reports malaise Eyes: Reports no additional eye complaints Reports system reviewed and no additional complaints, except as documented Cardiovascular: Denies chest pain, Denies lightheadedness, Reports palpitations and Reports dyspnea on exertion Respiratory: Reports no additional respiratory complaints and Reports dyspnea on exertion Gastrointestinal: Reports nausea Genitourinary: Reports no additional male genitourinary complaints Musculoskeletal: Reports no additional musculoskeletal complaints Skin/Breast: Reports system reviewed and no additional complaints, except as docu Psychiatric: Reports no additional psychiatric complaints Endocrine: Reports no additional endocrine complaints and Reports palpitations Physical Exam Vital Signs: Last Vital Signs Temp 97.8 F 05/29/22 08:00 Pulse 79 05/29/22 08:00 Resp 22 H 05/29/22 08:00 BP 116/63 05/29/22 08:00 Pulse Ox 94 05/29/22 08:00 O2 Del Method 05/29/22 08:00 O2 Flow Rate 2 05/29/22 08:00 BMI result Body Mass Index 46.2 Const General: cooperative, comfortable, no acute distress, alert, awake and tired appearing Nutritional Appearance: obese morbidly obese Orientation/consciousness: patient oriented x3 Neck Neck: Yes trachea midline, Yes supple and Yes no JVD Resp Effort & Inspection: normal respiratory effort Auscultation: clear to auscultation bilaterally Cardio Jugular venous distension: no JVD Palpation: normal PMI Rate: regular rate Rhythm: regular rhythm Heart sounds: S1 normal heart sound present, S2 normal heart sound present, no click, no gallops and no murmurs Neuro General: patient oriented x3 and no focal motor deficits Extrem General: Yes no clubbing, cyanosis or edema Objective Labs and Meds Result diagrams: 05/29/22 06:28 05/28/22 05:53 Lab results: Laboratory Results - last 24 hr 05/28/22 05/28/22 05/29/22 05:53 20:30 06:28 WBC 17.6 H RBC 4.71 Hgb 14.2 Hct 42.4 MCV 90.0 MCH 30.1 MCHC 33.5 RDW 12.2 Plt Count 294 MPV 10.6 Absolute Nucleated RBC 0.000 Nucleated RBC % (auto) 0.0 TSH 1.91 Urine Color Dark Yellow Urine Appearance Cloudy Urine pH 6.0 Ur Specific [place] 1.025 Urine Protein 100 (2+) H Urine Glucose (UA) Negative Urine Ketones Trace Urine Blood Trace H Urine Nitrite Negative Ur Leukocyte Esterase Moderate (2+) H Urine RBC 3-5 H Urine WBC >50 H Ur Squamous Epith Cells 6-10 Urine Bacteria 3+ Hyaline Casts 0-2 Progress Note: A&P Assessment and plan (1) Paroxysmal atrial fibrillation: Status: Acute Assessment and Plan: Recurrent atrial fibrillation with symptoms with paroxysmal atrial fibrillation. Patient also has nausea and not feeling well which is out of proportion to his atrial fibrillation. Other etiology needs to be evaluated especially UTI related. He is also hypoxic of unclear etiology question obesity hypoventilation. Remains hypoxic pulmonary consultation should be obtained. There is no evidence of pulmonary embolism. The also no overt evidence of heart failure at this point in time. Given that he has converted back to sinus rhythm and has failed only metoprolol therapy. Will start him on oral antiarrhythmic drug therapy with Multaq 400 mg b.i.d. to keep normal sinus rhythm. Also continue full oral anticoagulation with Xarelto 20 mg daily. Continue treat his underlying medical condition. He will require echocardiogram but this can be done as an outpatient. Blood pressure is currently well optimized. We discussed about long-term plans and management of atrial fibrillation details again. Will continue to follow with you Time Spent With Patient Time: Total time spent is greater than 50% in coordination of care (as documented) at patient's floor/unit and/or counseling patient: Progress Note: Quality Stroke Does the patient have a stroke diagnosis?: No Procedures Date of Service Date of Service: 05/29/22
--- NOTE | 2022-05-29 11:55 | P.PNIM_ITS ---
Subjective Subjective Date of Service: 05/29/22 Interval History: intermittent atrial fibrillation; VRR 170s Review of Systems denies chest pain Denies shortness of breath Complains of nausea Complains of fever and chills Physical Exam Vital Signs: Vital Signs: Last Vital Signs Temp 97.8 F 05/29/22 08:00 Pulse 79 05/29/22 08:00 Resp 22 H 05/29/22 08:00 BP 116/63 05/29/22 08:00 Pulse Ox 94 05/29/22 08:00 O2 Del Method 05/29/22 08:00 O2 Flow Rate 2 05/29/22 08:00 BMI result Body Mass Index 46.2 Const: Other: no acute distress Resp: Other: clear to auscultation bilaterally. No rales rhonchi or wheezes Cardio: Other: irregularly irregular when examined; tachy positive S1-S2 GI: Other: soft nontender nondistended normoactive fortunato Extrem: Other: no edema bilaterally Objective Data Active Medications Acetaminophen (Acetaminophen 325 Mg Tablet) 650 mg PO Q6H PRN PRN Reason: Pain, Mild (Pain Scale 1-3) Last Admin: 05/28/22 19:29 Dose: 650 mg Documented By: KADI Dronedarone (Dronedarone Hcl 400 Mg Tablet) 400 mg PO BID [facility] Last Admin: 05/29/22 10:17 Dose: 400 mg Documented By: BEAR Ceftriaxone Sodium 1 gm/ (Sodium Chloride) 50 mls @ 100 mls/hr IV BEDTIME [facility] Last Infusion: 05/29/22 00:57 Dose: 0 mls/hr Documented By: KADI Melatonin (Melatonin 3 Mg Tablet) 6 mg PO BEDTIME PRN PRN Reason: Insomnia Metoprolol Tartrate (Metoprolol Tartrate 5 Mg/5 Ml Vial) 5 mg IVPUSH Q6H PRN PRN Reason: HR>125 Last Admin: 05/29/22 06:31 Dose: 5 mg Documented By: KADI Comments: MD rodriguez to give early high HR Metoprolol Tartrate (Metoprolol Tartrate 25 Mg Tablet) 25 mg PO QID [facility]; Protocol Last Admin: 05/29/22 09:14 Dose: 25 mg Documented By: BEAR Omeprazole (Omeprazole 20 Mg Capsule.) 20 mg PO DAILY@06 [facility] Last Admin: 05/29/22 06:30 Dose: 20 mg Documented By: KADI Ondansetron HCl (Ondansetron Hcl 4 Mg/2 Ml Vial) 4 mg IVPUSH Q4H PRN PRN Reason: Nausea and Vomiting Last Admin: 05/29/22 10:17 Dose: 4 mg Documented By: BEAR Pharmacy Consult (Consult Rx Perform Med Rec) 1 each MISCELLANE ONCE PRN PRN Reason: Consult order Rivaroxaban (Rivaroxaban 20 Mg Tablet) 20 mg PO DAILY@1999 [facility] Last Admin: 05/28/22 19:29 Dose: 20 mg Documented By: KADI Senna (Sennosides 8.6 Mg Tablet) 17.2 mg PO BEDTIME PRN PRN Reason: Constipation Sodium Chloride (0.9 % Sodium Chloride Flush 3 Ml Syringe) 3 ml IVFLUSH QSHIFT [facility] Last Admin: 05/29/22 09:14 Dose: 3 ml Documented By: BEAR Labs CBC & Chem 7: 05/29/22 06:28 05/28/22 05:53 Labs: Laboratory Results - last 24 hr 05/28/22 05/28/22 05/29/22 05:53 20:30 06:28 MCV 90.0 MCH 30.1 MCHC 33.5 RDW 12.2 Plt Count 294 MPV 10.6 Absolute Nucleated RBC 0.000 Nucleated RBC % (auto) 0.0 TSH 1.91 Urine Color Dark Yellow Urine Appearance Cloudy Urine pH 6.0 Ur Specific [place] 1.025 Urine Protein 100 (2+) H Urine Glucose (UA) Negative Urine Ketones Trace Urine Blood Trace H Urine Nitrite Negative Ur Leukocyte Esterase Moderate (2+) H Urine RBC 3-5 H Urine WBC >50 H Ur Squamous Epith Cells 6-10 Urine Bacteria 3+ Hyaline Casts 0-2 Assessment and Plan (1) Paroxysmal atrial fibrillation: Status: Acute (2) HTN (hypertension): Status: Acute (3) Obstructive sleep apnea: Status: Acute Plan 57-year-old male with a past medical history of hypertension, obesity presented to the hospital today with a chief complaint of palpitations.? Paroxysmal Afib overnight with RVR 1.New onset atrial fibrillation with RVR ( paroxysmal in nature) - poor response to metoprolol - as per Cardiology will add Multaq 400 b.i.d. - continue on telemetry - echo as outpatient 2.Hypertension - acceptable control on current therapies - adjust as clinically and gated 3.ROLANDO - offer CPAP at HS 4.UTI - continue ceftriaxone - Ceftin on DC DVT prophylaxis:? Xarelto Code status: Full code Patient need continued inpatient hospitalization due to recurrent atrial fibrillation with RVR requiring as needed IV metoprolol Quality Stroke Does the patient have a stroke diagnosis?: No VTE Prior VTE?: No VTE Risk Level:: Medical - moderate - high VTE Device Contraindication: Treatment Not Indicated VTE Drug Contraindication: N/A - Med Ordered
--- NOTE | 2022-05-29 12:52 | MHC.CM.PN ---
met with pt and pt is independent cm intervention is not felt indicated hcp filed dc plan home no servceis
[2022-05-29] MEDS: Rivaroxaban 20 MG TABLET PO (19:54)
[2022-05-30] VITALS (7 sets, daily range): BP systolic 110–148; BP diastolic 68–79; PULSE 79–90; RESP 17–20; TEMP 35.9–36.6; O2SAT 93–96
[2022-05-30] MEDS: Omeprazole 20 MG CAPSULE.DR PO (05:46)
[2022-05-30 06:10] LABS: MANUAL DIFF FLAG NO
[2022-05-30 06:17] LABS: Basophils Percent Auto 0.2 % (0-2); Eosinophils Absolute Auto 0.1 X10*3/uL (0.0-0.4); Eosinophils Percent Auto 0.7 % (0-4); Hematocrit 40.7 % (42.0-52.0); Hemoglobin 13.5 g/dl (14.0-18.0); Imm Gran Abs Auto 0.05 X10*3/uL (0.00-0.03); Imm Gran Pct Auto 0.4 % (0.0-0.4); Lymphocytes Absolute Auto 1.2 X10*3/uL (1.2-4.9); Lymphocytes Percent Auto 9.1 % (20-40); Mean Corpuscular HGB Conc 33.2 g/dl (31.0-36.0); Mean Corpuscular Hemoglobin 30.4 pg (27.0-33.0); Mean Corpuscular Volume 91.7 fL (80.0-98.0); Mean Platelet Volume 10.7 fL (9.4-12.4); Monocytes Absolute Auto 0.9 X10*3/uL (0.1-1.2); Monocytes Percent Auto 6.6 % (2-11); Neutrophils Absolute Auto 10.6 x10*3/uL (2.0-8.3); Platelet Count 307 X10*3/uL (160-400); Red Blood Count 4.44 X10*6/uL (4.60-5.80); Red Cell Distribution Width 12.2 % (11.0-16.0); White Blood Count 12.8 X10*3/uL (4.8-10.8)
[2022-05-30 06:45] LABS: Alanine Aminotransferase 54 U/L (0-40); Albumin Level 3.6 g/dL (3.5-5.0); Alkaline Phosphatase 129 U/L (39-117); Anion Gap 16 (12-20); Aspartate Amino Transferase 33 U/L (5-37); Bilirubin Total 0.6 mg/dL (0.0-1.0); Blood Urea Nitrogen 18 mg/dL (9-16); Calcium 7.9 mg/dL (8.4-10.2); Carbon Dioxide 25 mmol/L (22-29); Chloride 99 mmol/L (96-108); Estimated Glomerular Filt Rate > 60; Glucose Fasting 123 mg/dL (60-99); Potassium 3.4 mmol/L (3.3-5.1); Sodium 137 mmol/L (135-145); Total Protein 6.8 g/dL (6.5-8.0)
--- NOTE | 2022-05-30 07:00 | CA_ITS ---
Transthoracic Echocardiogram Patient (Last, First, Middle): Ladarius Laws S Gender: Male Date of : 1965 Age: 57 Procedure Date: 05/30/2022 Procedure Type: Transthoracic Echocardiogram Location: [facility] [place] Height: 187.96 cm Weight: 163.3 kg BSA: 2.79 m2 Heart Rate: bpm BP: 127 / 79 mmHg Cornice Maker: Referring MD: Orion Baca MD Symptoms: afib Study Quality: Technically Difficult ECG Rhythm: Atrial FibrillationWith intermittent sinus rhythm Conclusions: - 1. Technically limited study due to body habitus and due to frequent fast heart rate despite use of contrast agent 2. LV systolic function appears to be normal with LVEF of 55-60% with moderate LVH 2. Limited visualization of cardiac valves with normal cardiac valvular Dopplers 4. Normal RV systolic pressure Findings Procedure Information Contrast agent, definity, is being given per protocol without apparent complications. Left Ventricle Normal left ventricular size and systolic function. There is moderately increased left ventricular wall thickness. The visually estimated ejection fraction is between 55-60%. Diastolic function is indeterminate on the basis of available data. Right Ventricle The right ventricle was not well visualized. Mildly increased right ventricular cavity size. Atria The left atrium was not well visualized. Interatrial shunt cannot be excluded. The right atrium was not well visualized. Aortic Valve The aortic valve was not well visualized. There is no aortic valve stenosis. There is no aortic valve regurgitation. Mitral Valve The mitral valve was not well visualized. There is no mitral valve stenosis. Pulmonic Valve The pulmonic valve was not well visualized. Tricuspid Valve The tricuspid valve was not well visualized. The right ventricular systolic pressure is normal. There is no evidence of pulmonary hypertension. Great Vessels All visible segments of the aorta are normal in size. The pulmonary artery was not well visualized. Venous The inferior vena cava was not well visualized. Pericardium/Pleural The pericardium was not well visualized. Prior Study Comparison No prior study available for comparison. Measurements 2D Linear Measurements IVSd: 1.58 0.6-0.9/0.6-1.0 cm LVIDd: 3.71 3.9-5.3/4.2-5.9 cm LVIDd Index: 1.33 2.4-3.2/2.2-3.1 cm/m2 LVIDs: 2.49 2.0-3.6 cm LVPWd: 1.56 0.7-1.1 cm Ao Root: 3.50 2.1-3.5 cm LA Diam: 4.60 2.7-3.8/3.0-4.0 cm LAIDs Index: 1.65 1.5-2.3 cm/m2 LV Mass: 281.17 67-162/88-224 g LV Mass Index: 100.78 43-95/49-115 g/m2 LVOT Diam: 2.40 3.0+(-)1.3 cm Mitral Valve MV Pk E: 1.07 MV Decel Time: 98.00 E'Lateral: 10.70 E'Medial: 10.90 E/E' Med: 9.80 E/E' Lat: 10.00 PHT: 29.00 MVA PHT: 7.59 Decel [place]: 10.92 Aortic Valve AoV Pk Mazin: 1.59 AoV Mn Mazin: 1.10 AoV VTI: 0.33 AoV Pk Grad: 10.00 Aov Mn Grad: 6.00 LENO Cont.VTI: 2.34 LVOT LVOT Pk Mazin: 0.97 LVOT Mn Mazin: 0.62 LVOT VTI: 0.17 LVOT Pk Grad: 4.00 LVOT Mn Grad: 2.00 LVOT Diam: 2.40 LVOT Area: 4.52 Diastolic Function MV Pk E: 1.07 E'Medial: 10.90 E/E' Med: 9.80 E' Laterial: 10.70 E/E' Lat: 10.00 Right Ventricle TAPSE (mm): 33.00 Tricuspid Valve TR Pk Mazin: 1.75 TR Pk Grad: 12.00 RA Press: 3.00 RVSP: 15.00 Great Vessels Aorta Ao Root-2D: 3.50 2.0-3.7 cm Ao Asc: 3.20 2.1-3.4 cm Pulmonary Valve PV Pk Mazin: 1.01 Peak PV Grad: 4.00 Updated in Other Vendor System with Status of Final Steve Solano MD electronically signed on 05/30/2022 11:05:00 AM with status of Final
[2022-05-30] MEDS: Metoprolol Tartrate 25 MG TABLET PO ×4 (09:50→20:47)
[2022-05-30] MEDS: Dronedarone HCl 400 MG TABLET PO ×2 (09:50→20:47)
[2022-05-30] MEDS: 0.9 % Sodium Chloride Flush 3 ML SYRINGE IVFLUSH ×3 (09:50→20:48)
[2022-05-30] MEDS: ondansetron HCL 4 MG/2 ML VIAL IVPUSH (09:52)
--- NOTE | 2022-05-30 10:29 | P.PNCA_ITS ---
Subjective Subjective Date of Service: 05/30/22 Principal diagnosis: Paroxysmal atrial fibrillation Interval history: Patient says generally does not feel well and feels uncomfortable in the belly. Also has nausea. Continues to have flutter, this morning when he woke up. Did not have any symptoms related to it. Currently on metoprolol 25 mg q.6 with Multaq. Blood pressure is better controlled. Also tolerating oral anticoagulant therapy. White cell count has improved Review of Systems Constitutional: Denies chills, Denies fever(s) and Reports malaise Eyes: Reports no additional eye complaints Cardiovascular: Reports no additional cardiovascular complaints Respiratory: Reports no additional respiratory complaints Gastrointestinal: Reports nausea Genitourinary: Reports no additional male genitourinary complaints Musculoskeletal: Reports no additional musculoskeletal complaints Skin/Breast: Reports system reviewed and no additional complaints, except as docu Reports system reviewed and no additional complaints, except as documented Psychiatric: Reports no additional psychiatric complaints Endocrine: Reports no additional endocrine complaints Hematologic/Lymphatic: Reports no additional hematologic/lymphatic complaints Allergic/Immunologic: Reports no additional allergic/immunologic complaints Physical Exam Vital Signs: Last Vital Signs Temp 96.9 F 05/30/22 08:00 Pulse 80 05/30/22 08:00 Resp 20 05/30/22 08:00 BP 118/71 05/30/22 08:00 Pulse Ox 95 05/30/22 08:00 O2 Del Method 05/30/22 08:00 O2 Flow Rate 2 05/30/22 08:00 BMI result Body Mass Index 46.2 Const General: cooperative, comfortable, no acute distress, alert, awake and tired appearing Nutritional Appearance: obese morbidly obese Orientation/consciousness: patient oriented x3 Neck Neck: Yes trachea midline, Yes supple and Yes no JVD Resp Effort & Inspection: normal respiratory effort Auscultation: clear to auscultation bilaterally Cardio Jugular venous distension: no JVD Palpation: normal PMI Rate: regular rate Rhythm: regular rhythm Heart sounds: S1 normal heart sound present, S2 normal heart sound present, no click, no gallops and no murmurs Neuro General: patient oriented x3 and no focal motor deficits Extrem General: Yes no clubbing, cyanosis or edema Objective Labs and Meds Result diagrams: 05/30/22 06:02 05/30/22 06:02 Lab results: Laboratory Results - last 24 hr 05/30/22 05/30/22 06:02 06:02 WBC 12.8 H RBC 4.44 L Hgb 13.5 L Hct 40.7 L MCV 91.7 MCH 30.4 MCHC 33.2 RDW 12.2 Plt Count 307 MPV 10.7 Immature Gran % (Auto) 0.4 Neut % (Auto) 83.0 H Lymph % (Auto) 9.1 L [place] % (Auto) 6.6 Eos % (Auto) 0.7 Baso % (Auto) 0.2 Lymph # (Auto) 1.2 [place] # (Auto) 0.9 Eos # (Auto) 0.1 Baso # (Auto) 0.0 Abs Immat Gran (auto) 0.05 H Absolute Neuts (auto) 10.6 H Absolute Nucleated RBC 0.000 Nucleated RBC % (auto) 0.0 Sodium 137 Potassium 3.4 Chloride 99 Carbon Dioxide 25 Anion Gap 16 BUN 18 H Creatinine 1.04 Estim Creat Clear Calc 127.0 Estimated GFR > 60 Fasting Glucose 123 H Calcium 7.9 L Total Bilirubin 0.6 AST 33 ALT 54 H Alkaline Phosphatase 129 H Total Protein 6.8 Albumin 3.6 Progress Note: A&P Assessment and plan (1) Paroxysmal atrial fibrillation: Status: Acute Assessment and Plan: Paroxysmal atrial fibrillation this middle-aged man with risk factor of hypertension and significant sleep apnea which needs to be corrected promptly. Strongly recommend him to uses CPAP machine impair Candie for now. Continue Multaq 400 mg b.i.d. and switch metoprolol to 50 mg b.i.d. for both rhythm control as well as for blood pressure. Blood pressure is well optimized at this point time. Continue full oral anticoagulation with Xarelto. Advised to ambulate. In the long run require sleep medicine consultation which has been already entered. Echocardiogram is done and will review it. Further treatment and workup based on the findings. Eventually need a stress test to evaluate for myocardial ischemia as well as a long-term Holter monitor to assess for recurrent arrhythmias. In the long run require significant weight reduction. He understands all this management plan very well. Will follow with you Time Spent With Patient Time: Total time spent is greater than 50% in coordination of care (as documented) at patient's floor/unit and/or counseling patient: Progress Note: Quality Stroke Does the patient have a stroke diagnosis?: No Procedures Date of Service Date of Service: 05/30/22
--- NOTE | 2022-05-30 12:12 | P.PNIM_ITS ---
Subjective Subjective Date of Service: 05/30/22 Interval History: rhythm overnight alternating between AFib and normal sinus rhythm. Patient states still feels lousy Review of Systems denies chest pain Denies shortness of breath Complains of nausea Complains of fever and chills Physical Exam Vital Signs: Vital Signs: Last Vital Signs Temp 97.4 F 05/30/22 11:19 Pulse 84 05/30/22 11:19 Resp 20 05/30/22 08:00 BP 130/73 05/30/22 11:19 Pulse Ox 94 05/30/22 11:19 O2 Del Method 05/30/22 11:19 O2 Flow Rate 2 05/30/22 08:00 BMI result Body Mass Index 46.2 Const: Other: no acute distress Resp: Other: clear to auscultation bilaterally. No rales rhonchi or wheezes Cardio: Other: irregularly irregular when examined; tachy positive S1-S2 GI: Other: soft nontender nondistended normoactive fortunato Extrem: Other: no edema bilaterally Objective Data Active Medications Acetaminophen (Acetaminophen 325 Mg Tablet) 650 mg PO Q6H PRN PRN Reason: Pain, Mild (Pain Scale 1-3) Last Admin: 05/28/22 19:29 Dose: 650 mg Documented By: KADI Dronedarone (Dronedarone Hcl 400 Mg Tablet) 400 mg PO BID [facility] Last Admin: 05/30/22 09:50 Dose: 400 mg Documented By: BEAR Ceftriaxone Sodium 1 gm/ (Sodium Chloride) 50 mls @ 100 mls/hr IV BEDTIME [facility] Last Infusion: 05/29/22 20:48 Dose: 100 mls/hr Documented By: JAIRO Melatonin (Melatonin 3 Mg Tablet) 6 mg PO BEDTIME PRN PRN Reason: Insomnia Metoprolol Tartrate (Metoprolol Tartrate 5 Mg/5 Ml Vial) 5 mg IVPUSH Q6H PRN PRN Reason: HR>125 Last Admin: 05/29/22 22:44 Dose: 5 mg Documented By: JAIRO Metoprolol Tartrate (Metoprolol Tartrate 25 Mg Tablet) 25 mg PO QID [facility]; Protocol Last Admin: 05/30/22 09:50 Dose: 25 mg Documented By: BEAR Omeprazole (Omeprazole 20 Mg Capsule.Dr) 20 mg PO DAILY@0630 [facility] Last Admin: 05/30/22 05:46 Dose: 20 mg Documented By: JAIRO Ondansetron HCl (Ondansetron Hcl 4 Mg/2 Ml Vial) 4 mg IVPUSH Q4H PRN PRN Reason: Nausea and Vomiting Last Admin: 05/30/22 09:52 Dose: 4 mg Documented By: BEAR Pharmacy Consult (Consult Rx Perform Med Rec) 1 each MISCELLANE ONCE PRN PRN Reason: Consult order Rivaroxaban (Rivaroxaban 20 Mg Tablet) 20 mg PO DAILY@1999 [facility] Last Admin: 05/29/22 19:54 Dose: 20 mg Documented By: JAIRO Senna (Sennosides 8.6 Mg Tablet) 17.2 mg PO BEDTIME PRN PRN Reason: Constipation Sodium Chloride (0.9 % Sodium Chloride Flush 3 Ml Syringe) 3 ml IVFLUSH QSHIFT [facility] Last Admin: 05/30/22 09:50 Dose: 3 ml Documented By: BEAR Labs CBC & Chem 7: 05/30/22 06:02 05/30/22 06:02 Labs: Laboratory Results - last 24 hr 05/30/22 05/30/22 06:02 06:02 MCV 91.7 MCH 30.4 MCHC 33.2 RDW 12.2 Plt Count 307 MPV 10.7 Immature Gran % (Auto) 0.4 Neut % (Auto) 83.0 H Lymph % (Auto) 9.1 L [place] % (Auto) 6.6 Eos % (Auto) 0.7 Baso % (Auto) 0.2 Lymph # (Auto) 1.2 [place] # (Auto) 0.9 Eos # (Auto) 0.1 Baso # (Auto) 0.0 Abs Immat Gran (auto) 0.05 H Absolute Neuts (auto) 10.6 H Absolute Nucleated RBC 0.000 Nucleated RBC % (auto) 0.0 Anion Gap 16 Estim Creat Clear Calc 127.0 Estimated GFR > 60 Fasting Glucose 123 H Calcium 7.9 L Total Bilirubin 0.6 AST 33 ALT 54 H Alkaline Phosphatase 129 H Total Protein 6.8 Albumin 3.6 Microbiology Microbiology Results: Microbiology 05/29/22 00:24 Blood Culture - Preliminary Blood - Venous Prelim: GPC Gram Stain only 09/04/22 00:23 Blood Culture - Preliminary Blood - Venous No growth after 24 hours. Assessment and Plan (1) Paroxysmal atrial fibrillation: Status: Acute (2) HTN (hypertension): Status: Acute (3) Obstructive sleep apnea: Status: Acute (4) UTI (urinary tract infection): Status: Acute Plan 57-year-old male with a past medical history of hypertension, obesity presented to the hospital today with a chief complaint of palpitations.? Paroxysmal Afib overnight with RVR 1.New onset atrial fibrillation with RVR ( paroxysmal in nature) - switch metoprolol to 50 mg b.i.d.; continue Multaq 400 b.i.d. - continue on telemetry - echo .. without acute finding 2.Hypertension - acceptable control on current therapies - adjust as clinically and gated 3.ROLANDO - encouraged CPAP at HS 4.UTI - continue ceftriaxone - Ceftin on DC DVT prophylaxis:? Xarelto Code status: Full code Patient need continued inpatient hospitalization due to recurrent atrial fibrillation with RVR requiring as needed IV metoprolol Quality Stroke Does the patient have a stroke diagnosis?: No VTE Prior VTE?: No VTE Risk Level:: Medical - moderate - high VTE Device Contraindication: Treatment Not Indicated VTE Drug Contraindication: N/A - Med Ordered
[2022-05-30] MEDS: Rivaroxaban 20 MG TABLET PO (20:47)
[2022-05-30] MEDS: cefTRIAXone sodium 1 GM in 0.9 % Sodium Chloride 50 ML IV (20:48)
[2022-05-31 04:00] VITALS: BP 135/78; PULSE 84; RESP 18; TEMP 36.6; O2SAT 96
[2022-05-31] MEDS: Omeprazole 20 MG CAPSULE.DR PO (05:38)
[2022-05-31 06:06] LABS: MANUAL DIFF FLAG NO
[2022-05-31 06:28] LABS: Basophils Percent Auto 0.3 % (0-2); Eosinophils Absolute Auto 0.2 X10*3/uL (0.0-0.4); Eosinophils Percent Auto 1.6 % (0-4); Hematocrit 39.8 % (42.0-52.0); Hemoglobin 13.3 g/dl (14.0-18.0); Imm Gran Pct Auto 1.1 % (0.0-0.4); Lymphocytes Absolute Auto 1.1 X10*3/uL (1.2-4.9); Lymphocytes Percent Auto 11.8 % (20-40); Mean Corpuscular HGB Conc 33.4 g/dl (31.0-36.0); Mean Corpuscular Hemoglobin 30.5 pg (27.0-33.0); Mean Corpuscular Volume 91.3 fL (80.0-98.0); Mean Platelet Volume 10.7 fL (9.4-12.4); Monocytes Absolute Auto 0.7 X10*3/uL (0.1-1.2); Monocytes Percent Auto 7.9 % (2-11); Neutrophils Absolute Auto 7.2 x10*3/uL (2.0-8.3); Neutrophils Percent Auto 77.3 % (45-73); Platelet Count 300 X10*3/uL (160-400); Red Blood Count 4.36 X10*6/uL (4.60-5.80); White Blood Count 9.3 X10*3/uL (4.8-10.8)
[2022-05-31 06:39] LABS: Alanine Aminotransferase 55 U/L (0-40); Albumin Level 3.5 g/dL (3.5-5.0); Alkaline Phosphatase 127 U/L (39-117); Anion Gap 15 (12-20); Aspartate Amino Transferase 26 U/L (5-37); Bilirubin Total 0.5 mg/dL (0.0-1.0); Blood Urea Nitrogen 16 mg/dL (9-16); Calcium 8.2 mg/dL (8.4-10.2); Carbon Dioxide 26 mmol/L (22-29); Chloride 101 mmol/L (96-108); Creatinine Clr Calc Pharmacy 134.8; Estimated Glomerular Filt Rate > 60; Glucose Fasting 108 mg/dL (60-99); Potassium 3.7 mmol/L (3.3-5.1); Sodium 138 mmol/L (135-145); Total Protein 6.8 g/dL (6.5-8.0)
[2022-05-31 07:09] VITALS: BP 147/76; PULSE 84; RESP 18; TEMP 36.6; O2SAT 96
[2022-05-31] MEDS: 0.9 % Sodium Chloride Flush 3 ML SYRINGE IVFLUSH (09:39)
[2022-05-31] MEDS: Metoprolol Tartrate 25 MG TABLET PO ×2 (09:39→14:27)
[2022-05-31] MEDS: Dronedarone HCl 400 MG TABLET PO (09:39)
[2022-05-31 11:41] VITALS: BP 141/87; PULSE 80; RESP 19; TEMP 36.6; O2SAT 96
--- NOTE | 2022-05-31 13:55 | P.DS_ITS ---
DS: Providers Provider Date of Service: 05/31/22 Date of admission: 05/27/22 21:36 Date of discharge: 05/31/22 Primary care physician: Unknown Physician Consults: 05/27/22 21:37 Consult to Cardiology Routine Consulting Provider: Steve Solano Reason for consultation: rapid afib DS: Diagnosis Discharge Diagnosis (1) Paroxysmal atrial fibrillation: Status: Acute (2) HTN (hypertension): Status: Acute (3) Obstructive sleep apnea: Status: Acute (4) UTI (urinary tract infection): Status: Acute DS: Summary Hospital Course Hospital Course: 57-year-old male with a past medical history of hypertension, obesity presented to the hospital today with a chief complaint of palpitations.? Patient reports that for the past 2 days has been having palpitations, denies any associated lightheadedness, dizziness, shortness of breath, chest pain.? Patient denies any fever chills cough or sputum production.? Denies any recent travel or sick contacts.? Denies any toxic habits.? Denies any numbness tingling or focal weakness.? Review of all other systems is negative except mentioned above ER course: Per ER team patient on presentation noted to be in AFib with rapid ventricular response; patient was subsequently placed on diltiazem drip.? Admitted to the hospital for further management [facility] admitted to telemetry on Cardizem drip. Remain difficult to control. PO metoprolol initiated and drip DC. continue to have burst of AFib with rapid ventricular response. Multaq 400 mg b.i.d. added per Cardiology. Echo done essentially unremarkable for acute issues. Over the next 48 hours rate control was adequate at this point in time cardiology believes stable for discharge home with outpatient follow-up Time Spent with Patient Time attestation: Total time spent providing and/or coordinating discharge services: Discharge coordination time: Greater than 30 minutes Quality: Safe Use of Opioids Does Pt have an Active Cancer Diagnosis on the Problem List?: No Quality: Stroke Does the patient have a stroke diagnosis?: No Physical Exam Vital Signs: Vital Signs: Last Vital Signs Temp 98 F 05/31/22 11:41 Pulse 80 05/31/22 11:41 Resp 19 05/31/22 11:41 BP 141/87 H 05/31/22 11:41 Pulse Ox 96 05/31/22 11:41 O2 Del Method 05/31/22 11:41 O2 Flow Rate 2 05/31/22 11:41 BMI result Body Mass Index 46.2 Const: Other: no acute distress Resp: Other: clear to auscultation bilaterally. No rales rhonchi or wheezes Cardio: Other: irregularly irregular when examined; tachy positive S1-S2 GI: Other: soft nontender nondistended normoactive fortunato Extrem: Other: no edema bilaterally DS: Data Data Completed and Pending Labs on day of discharge: Laboratory Results - last 24 hr 05/31/22 05/31/22 05:48 05:48 WBC 9.3 RBC 4.36 L Hgb 13.3 L Hct 39.8 L MCV 91.3 MCH 30.5 MCHC 33.4 RDW 12.0 Plt Count 300 MPV 10.7 Immature Gran % (Auto) 1.1 H Neut % (Auto) 77.3 H Lymph % (Auto) 11.8 L [place] % (Auto) 7.9 Eos % (Auto) 1.6 Baso % (Auto) 0.3 Lymph # (Auto) 1.1 L [place] # (Auto) 0.7 Eos # (Auto) 0.2 Baso # (Auto) 0.0 Abs Immat Gran (auto) 0.10 H Absolute Neuts (auto) 7.2 Absolute Nucleated RBC 0.000 Nucleated RBC % (auto) 0.0 Sodium 138 Potassium 3.7 Chloride 101 Carbon Dioxide 26 Anion Gap 15 BUN 16 Creatinine 0.98 Estim Creat Clear Calc 134.8 Estimated GFR > 60 Fasting Glucose 108 H Calcium 8.2 L Total Bilirubin 0.5 AST 26 ALT 55 H Alkaline Phosphatase 127 H Total Protein 6.8 Albumin 3.5 Preliminary micro results at discharge 05/29/22 00:23 Blood Culture - Preliminary Blood - Venous No growth after 48 hours. Discharge Plan Discharge Patient Disposition: Home, Self-Care Discharge Diagnosis: Atrial fibrillation with RVR Referrals: Physician,Unknown J [Primary Care Provider] - 1 Week Discharge Medications: New Xarelto 20 mg tablet 20 mg PO DAILY Qty: 30 0RF Rx Instructions: must administer with evening meal Multaq 400 mg Tablet 400 mg PO BID Qty: 60 0RF Xarelto 20 mg Tablet 20 mg PO DAILY@2000 Qty: 30 0RF metoprolol tartrate 50 mg tablet 50 mg PO BID Qty: 60 0RF Discontinued valsartan-hydrochlorothiazide 320-25 mg tablet 1 tab PO DAILY Discharge Orders: Discharge Order (Routine); Ordered 05/31/22 Ordered By: Morales Betancourt Diet: Low fat, low cholesterol Activity on Discharge: As tolerated Stand Alone Forms: Patient Portal Discharge page Other Ambulatory Orders: Sleep Medicine Referral (Routine) Location: None Selected Ordered By: Steve Solano Care Plan Goals: Hypertension/obstructive sleep apnea follow-up with pulmonology, in regard to hypertension hold valsartan and take Toprol-XL 50mg daily follow low-calorie diet, exercise as tolerated Health Concerns: Hypertension/obstructive sleep apnea Plan of Treatment: Follow up with Dr. Luu from Cardiology, call to make an appointment Assessment: As per discharge summary
--- NOTE | 2022-05-31 14:33 | MHC.CM.PN ---
PT MEDICALLY CLEARED FOR D/C HOME NO SERVICES, FAMILY TO TRANSPORT
== END 2022-05-31 16:30 | disposition home or self-care (01) | DRG 201 ==
LOC: HO.ED 21:16 → HO.EDOVER 21:44 → HO.IMC 05-28 16:55
PROVIDERS: Hospitalist; Physician Assistant; Admitting Provider Hospitalist; Emergency Provider Student in an Organized Health Care Education/Training Program; PCP Internal Medicine; Visit Provider Hospitalist
DX: I48.0 Paroxysmal atrial fibrillation (principal); Z68.42 Body mass index [BMI] 45.0-49.9, adult; I10 Essential (primary) hypertension; D72.829 Elevated white blood cell count, unspecified; N39.0 Urinary tract infection, site not specified; E66.01 Morbid (severe) obesity due to excess calories; G47.33 Obstructive sleep apnea (adult) (pediatric); I47.1 Supraventricular tachycardia; Z91.14 Patient's other noncompliance with medication regimen; Z91.19 Patient's noncompliance with other medical treatment and regimen; Z20.822 Contact with and (suspected) exposure to COVID-19; Z79.01 Long term (current) use of anticoagulants; Z79.899 Other long term (current) drug therapy
CPT/HCPCS: 36415; 71045; 71275; 80048; 80053; 81001; 83735; 83880; 84443; 84484; 85025; 85027; 85379; 85610; 85730; 87040; 87147; 87205; 87635; 93005; 93306; 99285; J0696; J1650; J2405; J3475; Q9957; Q9967

== ENCOUNTER → 2022-06-06 07:53 | Outpatient (REF) | payer BC, SELFPAY ==
--- NOTE | 2022-06-06 07:58 | HM_ITS ---
* Total monitoring time 3 days and 1 hour. * Underlying rhythm is sinus. Average rate 80/Min. Range 44 to 122/Min. * Frequent supraventricular ectopy. [place] of 1.8%. * Short runs noted. Longest episode was 4 minutes and 18 seconds. One part of the strip possibly atrial flutter or atrial tachycardia while another area in the same strip suggestive of atrial fibrillation. * Rare premature ventricular contractions. * No clear patient symptoms documented. MTDD
--- NOTE | 2022-06-06 07:58 | CA_ITS ---
Acquisition Time: 2022-06-06 08:51:41 Total Exercise Time: 00:01:45 Test Indications: AFIB Medications: SEE CHART Protocol: MICHAEL Max HR: 129 BPM 79% of Pred: 163 BPM Max BP: 130/080 mmHG Max Work Load: 4.1 METS Exercise stress test with exercise 1 min 45 sec of Michael protocol, acheiving 79% MPHR, with request to stop due to right knee pain, with mild sob, no chest discomfort, with isolated PAC, with normotensive response to exercise, with nondiagnostic EKG for ischemia due to suboptimal heart rate and exercise time, without noted ischemia at achieved workload. Test reviewed with Dr Solano Discussed planning a pharmacological nuclear stress test with patient and he reports extreme claustraphobia. Had him go to nuclear medicine to see/ lay on table. He tells us he would Not be able to complete that test, even if he had premedication with antianxiety medication. Referred By: Steve Solano Overread By: OBED RIVAS
== END ==
LOC: HO.CARD 07:53
PROVIDERS: Visit Provider Internal Medicine Cardiovascular Disease
DX: I48.0 Paroxysmal atrial fibrillation (principal)
CPT/HCPCS: 93017; 93242

== ENCOUNTER → 2022-06-28 15:47 | Outpatient (REF) | payer BC, SELFPAY | LOC: HO.SL 15:47 | PROVIDERS: PCP Internal Medicine; Visit Provider Nurse Practitioner Family | DX: G47.33 Obstructive sleep apnea (adult) (pediatric) (principal); I10 Essential (primary) hypertension; I48.0 Paroxysmal atrial fibrillation | CPT/HCPCS: 95806 ==

== ENCOUNTER → 2022-06-29 14:15 | Outpatient (BNVA) | payer BC, SELFPAY | PROVIDERS: PCP Internal Medicine; Referring Provider Internal Medicine; Visit Provider Internal Medicine Cardiovascular Disease | DX: I48.0 Paroxysmal atrial fibrillation (principal); I10 Essential (primary) hypertension | CPT/HCPCS: 93005 ==

== ENCOUNTER → 2022-12-13 13:05 | Outpatient (BNVA) | payer BC, SELFPAY | PROVIDERS: PCP Internal Medicine; Visit Provider Internal Medicine Cardiovascular Disease | DX: I48.0 Paroxysmal atrial fibrillation (principal); I10 Essential (primary) hypertension | CPT/HCPCS: 93005 ==

== ENCOUNTER → 2023-05-24 08:27 | Outpatient (BNVA) | payer BC, SELFPAY | PROVIDERS: PCP Internal Medicine; Referring Provider Internal Medicine; Visit Provider Internal Medicine Cardiovascular Disease ==

== ENCOUNTER → 2023-05-30 08:16 | Outpatient (BNVA) | payer SELFPAY | PROVIDERS: PCP Internal Medicine; Referring Provider Internal Medicine; Visit Provider Internal Medicine Cardiovascular Disease ==

== ENCOUNTER 2023-08-28 08:23 | Outpatient (AMB) | payer OTHER, SELFPAY ==
--- NOTE | 2023-08-28 09:12 | AM.OFFVISNUR ---
Intake Intake Visit Reasons: 9 month ekg Intake Note: Pt here for f/up EKG. H/O afib. Feels good. No complaints. Oxygen Tank Filler Required: No Accompanied by: Self / Same As Patient Allergies No Known Allergies Allergy (Verified 05/27/22 18:33) Medication List - Last Reconciled 08/28/23 by Laurence Watson, RN dronedarone (Multaq) 400 mg PO BID 90 days metoprolol tartrate 50 mg PO BID 90 days rivaroxaban (Xarelto) 20 mg PO DAILY@1999 90 days Followed by:: Dr. Solano Nursing Note EKG completed, EKG auto-reading sinus rhythm at [address]s oSlano's desk for review and signature. Office Procedures EKG [id number], Complete Coding Level of Care Code Est Pt Level 1 (44329) CPT Codes EKG - CPT: 21139-Thqzskvwooaejeozk, Complete ([id number]) Time Spent (min) 15 Comment EKG, Medication Reconciliation, Documentation, Education
== END 2023-08-28 09:03 | disposition home or self-care (01) ==
PROVIDERS: Visit Provider Internal Medicine Cardiovascular Disease
DX: I45.10 Unspecified right bundle-branch block (principal)
CPT/HCPCS: 93010

== ENCOUNTER → 2023-08-28 08:23 | Outpatient (BNVA) | payer OTHER, SELFPAY | PROVIDERS: Visit Provider Internal Medicine Cardiovascular Disease | DX: R94.31 Abnormal electrocardiogram [ECG] [EKG] (principal) | CPT/HCPCS: 93005 ==

== ENCOUNTER → 2023-11-16 08:05 | Outpatient (REF) | payer OTHER, SELFPAY ==
--- NOTE | 2023-11-16 08:08 | CA_ITS ---
Transthoracic Echocardiogram Patient (Last, First, Middle): Ladarius Laws S Gender: Male Date of : 1965 Age: 58 Procedure Date: 11/16/2023 Procedure Type: Transthoracic Echocardiogram Location: OP Height: 187.96 cm Weight: 154.22 kg BSA: 2.72 m2 Heart Rate: 78 bpm BP: 118 / 76 mmHg Probate Lawyer: NATHANIEL Referring MD: Steve Solano MD Sales Operations Coordinator: Steve Solano MD Symptoms: I48.0 - Paroxysmal atrial fibrillation Study Quality: Technically Difficult ECG Rhythm: Sinus Conclusions: - 1. Technically limited study despite use of contrast agent 2. Normal LV ejection fraction of 65-70% with moderate LVH with impaired relaxation filling pattern 3. Limited visualization of cardiac valves with normal cardiac valvular Doppler 4. Upper limits of normal ascending aortic size Findings Procedure Information Contrast agent, definity, is being given per protocol without apparent complications. Left Ventricle Normal left ventricular size and systolic function. There is moderately increased left ventricular wall thickness. The visually estimated ejection fraction is between 65-70%. Spectral Doppler is indicative of an impaired relaxation filling pattern. E/E prime ratio is between 8 and 15 consistent with indeterminate filling pressures. Right Ventricle Normal right ventricular cavity size. Atria The left atrium was not well visualized. Interatrial shunt cannot be excluded. The right atrium was not well visualized. Aortic Valve The aortic valve was not well visualized. There is no aortic valve stenosis. There is no aortic valve regurgitation. Mitral Valve The mitral valve was not well visualized. There is no mitral valve regurgitation. There is no mitral valve stenosis. Pulmonic Valve The pulmonic valve was not well visualized. Tricuspid Valve The tricuspid valve was not well visualized. Tricuspid regurgitation envelope is inadequate for calculation of right ventricular systolic pressure. Great Vessels The aorta was not well visualized. The pulmonary artery was not well visualized. Venous The inferior vena cava was not well visualized. Pericardium/Pleural The pericardium was not well visualized. Prior Study Comparison No significant change compared to prior study dated: 05/30/2022. Measurements 2D Linear Measurements IVSd: 1.54 0.6-0.9/0.6-1.0 cm LVIDd: 4.47 3.9-5.3/4.2-5.9 cm LVIDd Index: 1.64 2.4-3.2/2.2-3.1 cm/m2 LVIDs: 3.04 2.0-3.6 cm LVPWd: 1.50 0.7-1.1 cm LA Diam: 4.70 2.7-3.8/3.0-4.0 cm LAIDs Index: 1.73 1.5-2.3 cm/m2 LV Mass: 347.62 67-162/88-224 g LV Mass Index: 127.80 43-95/49-115 g/m2 LVOT Diam: 2.40 3.0+(-)1.3 cm 2D Systolic Function EF 4C: 67.40 >55% EF 2C: 68.50 >55% EF BiP: 68.30 >55% Mitral Valve MV Pk E: 0.72 MV PK A: 0.88 MV Decel Time: 192.00 E/A: 0.80 E'Lateral: 5.44 E'Medial: 6.31 E/E' Med: 11.40 E/E' Lat: 13.20 PHT: 56.00 MVA PHT: 3.93 Decel Sevier: 3.74 Aortic Valve AoV Pk Mazin: 1.17 AoV Mn Mazin: 0.85 AoV VTI: 0.24 AoV Pk Grad: 5.00 Aov Mn Grad: 3.00 LENO Cont.VTI: 3.76 LVOT LVOT Pk Mazin: 0.93 LVOT Mn Mazin: 0.67 LVOT VTI: 0.20 LVOT Pk Grad: 3.00 LVOT Mn Grad: 2.00 LVOT Diam: 2.40 LVOT Area: 4.52 Diastolic Function MV Pk E: 0.72 MV Pk A: 0.88 E/A: 0.80 E'Medial: 6.31 E/E' Med: 11.40 E' Laterial: 5.44 E/E' Lat: 13.20 Right Ventricle TAPSE (mm): 24.40 TVS' Mazin: 13.40 Tricuspid Valve RA Press: 3.00 Great Vessels Aorta Sinus of Valsalva: 3.46 2.0-3.5 cm Ao Asc: 3.50 2.1-3.4 cm Updated in Other Vendor System with Status of Final Steve Solano MD electronically signed on 11/17/2023 2:13:03 PM with status of Final
== END ==
LOC: HO.CARD 08:05
PROVIDERS: PCP Internal Medicine; Visit Provider Internal Medicine Cardiovascular Disease
DX: I48.0 Paroxysmal atrial fibrillation (principal)
CPT/HCPCS: 93306; Q9957

== ENCOUNTER → 2023-11-16 08:08 | Outpatient (BNV) | payer OTHER, SELFPAY | PROVIDERS: PCP Internal Medicine; Visit Provider Internal Medicine Cardiovascular Disease | DX: I48.0 Paroxysmal atrial fibrillation (principal) | CPT/HCPCS: 93306 ==

== ENCOUNTER 2023-12-01 08:18 | Outpatient (AMB) | payer OTHER, SELFPAY ==
--- NOTE | 2023-12-01 08:30 | A.OFFVIS_ITS ---
Intake Vital Signs 12/01/23 08:31 Height 6 ft 2 in Weight 348 lb 5.286 oz BMI 44.7 BP 120/74 Blood Pressure Location Lt brachial Position Sitting Pulse 78 Pulse Source Monitor Intake Visit Reasons: 1 year follow up after echo Allergies No Known Allergies Allergy (Verified 12/01/23 08:32) Medication List - Last Reconciled 12/01/23 by Steve Solano MD dronedarone (Multaq) 400 mg PO BID 90 days metoprolol tartrate 50 mg PO BID 90 days rivaroxaban (Xarelto) 20 mg PO DAILY@1999 90 days HPI HPI Comments History of Present Illness Details Ladarius comes for annual follow-up. He says he is feeling great. He does not use CPAP but he said he is lost 70 lb with medications and dietary change in exercise. He feels strong. He denies any atrial fibrillation episode s. Denies any worsening shortness of breath, orthopnea, PND. Says his blood pressure is doing well. Recent echocardiogram shows normal LV systolic function but moderate LVH without any major valvular abnormalities. No bleeding issues or neurologic events. [facility] Medical History Obstructive sleep apnea HTN (hypertension) Atrial fibrillation with RVR Social History Household Members: Family Housing: House Do you presently have visiting nurse or other home services: No Alcohol intake: never Patient Tobacco Use Status: Never used Tobacco service: No Review of Systems Const Reports no additional complaints ENT Reports dizziness Card Denies chest pain, Denies chest pain at rest, Denies chest pain with activity, Denies rapid heart rate, Denies pedal edema, Denies edema, Denies leg edema, Denies lightheadedness, Denies palpitations, Denies dyspnea, Denies dyspnea on exertion and Denies orthopnea Resp Denies cough, Denies dyspnea and Denies dyspnea on exertion GI Denies hematochezia and Denies change in stool character Musc Denies abnormal gait, Reports limited range of motion, Reports muscle cramps, Denies muscle weakness, Denies numbness, Denies radiating pain into limb, Denies stiffness and Denies tingling Neuro Denies abnormal gait, Reports dizziness, Denies numbness and Denies tingling Endo Denies palpitations Physical Exam Vital Signs: Last Vital Signs Pulse 78 03/08/24 08:31 BP 120/74 12/01/23 08:31 BMI result Body Mass Index 44.7 Const General: cooperative, comfortable, no acute distress, alert and awake Nutritional Appearance: obese morbidly obese Orientation/consciousness: patient oriented x3 Neck Neck: Yes trachea midline, Yes supple and Yes no JVD Resp Effort & Inspection: normal respiratory effort Auscultation: clear to auscultation bilaterally Cardio Jugular venous distension: no JVD Palpation: normal PMI Rate: regular rate Rhythm: regular rhythm Heart sounds: S1 normal heart sound present, S2 normal heart sound present, no click, no gallops, no murmurs and no rubs GI Auscultation: normal bowel sounds Skin General skin exam: no rashes or lesions noted Neuro General: patient oriented x3 and no focal motor deficits Extrem General: Yes no clubbing, cyanosis or edema Office Procedures EKG Details: EKG shows normal sinus rhythm with rightward axis and incomplete right bundle- branch block with normal QT interval [id number], Complete Assessment & Plan Assessment & Plan (1) Paroxysmal atrial fibrillation: Code(s): I48.0 - Paroxysmal atrial fibrillation Plan: Paroxysmal atrial fibrillation with underlying structural heart disease. Patient is doing extremely well with rhythm control approach. He is very very happy and says that he has much improved quality of life at this point time. We discussed about management of atrial fibrillation details. He is done very well with rhythm control approach will continue pursue rhythm control approach. Continue Multaq. Also continue given his underlying structural heart disease as well as hypertension to continue full oral anticoagulation Xarelto 20 mg daily. Semi annual renal function test should be pursued. EKG will be required every 3 months. He is encouraged to continue to participate in physical activity and continued weight loss program. Encouraged to use CPAP therapy but he says that with weight loss and nasal lavage he has not having significant snoring issue (2) HTN (hypertension): Code(s): I10 - Essential (primary) hypertension Plan: Hypertension which is currently well optimized advised to monitor blood pressure at home maintain a log. Goal blood pressure less than 130/84. Continue participate in aggressive weight loss program. Low-salt diet was discussed. Will follow up in the clinic in 1 year's time, sooner p.r.n.. Thank you for allowing me to partake in his care Orders: Orders Complete Blood Count no Diff Today I48.0 - Paroxysmal atrial fibrillation CA echo transthoracic complete 1 Year I48.0 - Paroxysmal atrial fibrillation Basic Metabolic Panel Today I48.0 - Paroxysmal atrial fibrillation Liver Panel Today I48.0 - Paroxysmal atrial fibrillation Coding Level of Care Code Est Pt Level 4 (26693) Diagnoses Paroxysmal atrial fibrillation I48.0 HTN (hypertension) I10 CPT Codes EKG - CPT: 81241-Iketrqjeaqfskwzxr, Complete ([id number])
[2023-12-01 08:31] VITALS: BP 120/74; PULSE 78; BMI 44.7
== END 2023-12-01 09:15 | disposition home or self-care (01) ==
PROVIDERS: Visit Provider Internal Medicine Cardiovascular Disease
DX: I48.0 Paroxysmal atrial fibrillation (principal); I10 Essential (primary) hypertension
CPT/HCPCS: 93010; 99214

== ENCOUNTER → 2023-12-01 08:18 | Outpatient (BNVA) | payer OTHER, SELFPAY | PROVIDERS: Visit Provider Internal Medicine Cardiovascular Disease | DX: I48.0 Paroxysmal atrial fibrillation (principal); I10 Essential (primary) hypertension; Z79.01 Long term (current) use of anticoagulants | CPT/HCPCS: 93005 ==

== ENCOUNTER 2024-03-01 08:15 | Outpatient (AMB) | payer OTHER, SELFPAY ==
--- NOTE | 2024-03-01 08:49 | AM.OFFVISNUR ---
Intake Intake Visit Reasons: EKG meds Allergies No Known Allergies Allergy (Verified 12/01/23 08:32) Nursing Note PT is taking Dronedarone 400 mg EKG left on Providers Desk for review Office Procedures EKG [id number], Complete Coding CPT Codes EKG - CPT: 24672-Ikchfuiebagtzqhmp, Complete ([id number])
== END 2024-03-01 10:05 | disposition home or self-care (01) ==
PROVIDERS: PCP Internal Medicine; Visit Provider Internal Medicine Cardiovascular Disease
DX: I45.10 Unspecified right bundle-branch block (principal)
CPT/HCPCS: 93010

== ENCOUNTER → 2024-03-01 08:15 | Outpatient (BNVA) | payer OTHER, SELFPAY | PROVIDERS: PCP Internal Medicine; Visit Provider Internal Medicine Cardiovascular Disease | DX: Z79.899 Other long term (current) drug therapy (principal) | CPT/HCPCS: 93005 ==

== ENCOUNTER → 2024-05-31 08:22 | Outpatient (BNVA) | payer OTHER, SELFPAY | PROVIDERS: PCP Internal Medicine; Visit Provider Internal Medicine Cardiovascular Disease ==

== ENCOUNTER → 2024-08-30 08:28 | Outpatient (BNVA) | payer OTHER, SELFPAY | PROVIDERS: PCP Internal Medicine; Visit Provider Internal Medicine Cardiovascular Disease ==

== ENCOUNTER 2024-09-12 09:29 | Emergency (ER) | payer OTHER, SELFPAY ==
--- NOTE | ~2024-09-12 | CT_ITS ---
EXAMINATION: CT ABDOMEN AND PELVIS WITH CONTRAST CLINICAL INFORMATION: Lower abdominal tenderness left greater than right COMPARISON: CT scan of the abdomen and pelvis August 2017 TECHNIQUE: Multidetector volumetric images were obtained from the superior aspect of the liver through the pubic symphysis following administration 100 mL of Omnipaque 350 intravenous contrast. Sagittal and coronal reformatted images were obtained on the technologist's workstation. Oral contrast: No This CT examination was performed using dose optimization techniques as appropriate, variously including the following: *Automated exposure control *Adjustment of mA and/or kV according to patient size (this includes techniques or standardized protocols for targeted exams where dose is matched to indication/reason for exam; i.e. extremities or head) *Use of iterative reconstruction technique DLP: 1469 mGy-cm FINDINGS: LUNG BASES: The visualized lung bases are unremarkable. LIVER, GALLBLADDER, AND BILIARY TREE: The liver is normal in size, shape, and attenuation. No focal hepatic lesion or biliary ductal dilatation is present. The gallbladder is unremarkable with no evidence of radiopaque gallstones, gallbladder wall thickening, or obvious pericholecystic inflammatory changes. PANCREAS: Unremarkable. SPLEEN: Unremarkable. ADRENAL GLANDS: Unremarkable. KIDNEYS AND URETERS: The kidneys are normal in size, shape, and attenuation. No hydronephrosis, hydroureter, or calculi seen. No perinephric stranding. BLADDER: Unremarkable. GASTROINTESTINAL TRACT: Large bowel: The sigmoid colon and there is extensive diverticulosis along with some wall thickening and pericolonic stranding which is new compared to prior. The appearance is consistent with diverticulitis no abscess or evidence for perforation. No free air. Appendix: Normal. Small bowel normal. STOMACH: Normal ABDOMINAL WALL: There is a fat-containing umbilical hernia. Hernia sac measures 6.2 cm transverse 5.4 cm AP and 6 cm craniocaudal. This has significantly increased in size compared to previous (previously measured 1.6 cm transverse 4 cm AP and 2.3 cm craniocaudal.) LYMPH NODES: Normal. VASCULAR: Mild calcific of sclerotic disease throughout PELVIC VISCERA: Unremarkable. OSSEOUS STRUCTURES: Severe degenerative disc disease at L5-S1 unchanged. Mild degenerative disc disease at L4-L5 unchanged. Mild osteoarthritis in both hips unchanged. CT/CT abdomen pelvis w IV con IMPRESSION: 1. Acute Diverticulitis of the sigmoid colon. 2. Enlarging fat-containing umbilical hernia. Fleischner guidelines were followed. Electronically signed by: Renny Mondragon MD 09/12/2024 03:11 PM BUD KEMP
[2024-09-12 09:38] VITALS: BP 138/88; PULSE 79; RESP 20; TEMP 36.3; O2SAT 98; BMI 46.0
--- NOTE | 2024-09-12 09:51 | ED_ITS ---
HPI - General Adult General Chief complaint: Abdominal Pain Stated complaint: Abd pain Time Seen by Provider: 09/12/24 09:48 Source: patient Mode of arrival: ambulatory Limitations: no limitations History of Present Illness ED Provider: Abhi PALM narrative: Patient is a 59-year-old male with history of paroxysmal afib on Xarelto, HTN, ROLANDO, currently on semaglutide but denies any recent change in dosage, presenting to the emergency department with complaint of lower abdominal pain since last . Left side worse than right, pain is intermittent/cramping. States on Monday pain resolved after a normal bowel movement, then returned on Monday. Pain seems to be temporarily relieved with BMs since that time. Reports some mucous in his stool. Denies hematochezia or melena. Denies constipation or diarrhea, is passing flatus. Denies nausea or vomiting. Denies fevers. Denies dysuria, frequency, hematuria or other urinary symptoms. Denies chest pain, difficulty breathing, back pain. MD complaint: abdominal pain Onset (ago): week(s) Location: abdomen Radiation: non-radiation Severity: severe Quality: other (cramping) Pain Consistency: intermittent Associated symptoms: denies other symptoms Treatments prior to arrival: none Related Data Home Medications ?Medication ?Instructions ?Recorded ?Confirmed tirzepatide 10 mg/0.5 mL 10 mg subcut QWEEK 12/01/23 subcutaneous pen injector (Daisy) Previous Rx's ?Medication ?Instructions ?Recorded metoprolol tartrate 50 mg tablet 50 mg PO BID #180 tabs 05/31/24 rivaroxaban 20 mg tablet (Xarelto) 20 mg PO DAILY@1999 90 days #90 05/31/24 tabs dronedarone 400 mg tablet (Multaq) 400 mg PO BID 90 days #180 tabs 08/26/24 amoxicillin 875 mg-potassium 1 tab PO BID #19 tabs 09/12/24 clavulanate 125 mg tablet Allergies Allergy/AdvReac Type Severity Reaction Status Date / Time No Known Allergies Allergy Verified 09/12/24 09:42 Review of Systems 2 Review of Systems: As per HPI Yes all other systems are reviewed and are negative Constitutional: Constitutional: Reports as per HPI [facility] Past Medical History Medical History Obstructive sleep apnea HTN (hypertension) Atrial fibrillation with RVR Social History Social History Household Members: Family Housing: House Do you presently have visiting nurse or other home services: No Alcohol intake: never Patient Tobacco Use Status: Never used Tobacco Use of substances other than those prescribed or required for medical reasons: No Advance Directives: Yes Advance Directives on File: Yes Advance Directives Date on File: 06/01/22 Do you have a plan to hurt others: No Plan service: No Physical Exam ED Vital Signs: Vital Signs - 24 hr 09/12/24 09:38 09/12/24 10:41 09/12/24 12:34 Temperature 97.4 F Pulse Rate 79 70 Respiratory Rate 20 18 18 Blood Pressure 138/88 111/59 L Pulse Oximetry 98 96 Oxygen Delivery Method Room Air Room Air 09/12/24 15:04 09/12/24 15:05 Temperature 97.6 F Pulse Rate 75 Respiratory Rate 16 16 Blood Pressure 137/83 Pulse Oximetry 98 Oxygen Delivery Method Room Air BMI result Body Mass Index 46.0 Vital signs have been reviewed and appear to be correct. Blood pressure normal. Heart rate normal. Respiratory rate normal. Temperature normal. Oxygen saturation normal. Const General: cooperative, healthy appearing and no acute distress Orientation/consciousness: oriented to person, oriented to place, oriented to time and patient oriented x3 Limitations: no limitations HENMT Head: Yes normocephalic and Yes atraumatic Ears: external ears normal General nose exam: Normal external nose present Face and sinus: Yes face symmetric Mouth: oropharynx normal and moist mucous membranes Throat: Yes uvula midline Eyes Pupils: Equal, round and reactive pupils present Neck Neck: Yes normal visual inspection and Yes supple Resp Effort & Inspection: normal respiratory effort and able to speak in complete sentences Auscultation: clear to auscultation bilaterally Cardio Rate: regular rate Rhythm: regular rhythm Heart sounds: S1 normal heart sound present and S2 normal heart sound present GI Inspection: Yes normal to inspection Palpation (GI): Soft to palpation, Tenderness to palpation present (GI) in the LLQ, no guarding and No Rebound tenderness present Auscultation: normoactive bowel sounds General: Yes no CVA tenderness Back/Spine/Pelvis Back: no CVA tenderness Skin General skin exam: elasticity normal and turgor normal Neuro General: oriented to person, oriented to place, oriented to time, patient oriented x3, moves all extremities, no focal motor deficits and CN's II-XI intact bilaterally Cranial nerves: Yes Equal, round and reactive pupils present Cognition (Neuro): normal cognition Extrem General: Yes full ROM, Yes no pedal edema and Yes no calf tenderness Psych Mental Status: mental status grossly normal Affect: normal affect Thought process: Normal thought process present Medications Administered Discontinued Medications Generic Name Dose Route Start Last Admin Trade Name Gio PRN Reason Stop Dose Admin Hydromorphone HCl 1 mg 09/12/24 10:28 09/12/24 10:41 Hydromorphone Hcl 1 Mg/Ml Syringe IVPUSH 09/12/24 10:29 1 mg ONCE ONE Administration Protocol Hydromorphone HCl 1 mg 09/12/24 14:57 09/12/24 15:04 Hydromorphone Hcl 1 Mg/Ml Syringe IVPUSH 09/12/24 14:58 1 mg ONCE ONE Administration Protocol Iohexol 100 ml 09/12/24 11:34 09/12/24 11:34 Iohexol 350 Mg/Ml 100 Ml Infus..Btl IV 09/12/24 11:35 100 ml ONCE ONE Administration Medical Decision Making Medical Decision Making [facility] Narrative: Patient is a 59-year-old male with history of paroxysmal afib on Xarelto, HTN, ROLANDO, currently on semaglutide but denies any recent change in dosage, presenting to the emergency department with complaint of lower abdominal pain since last . On exam patient is awake, A+Ox3, VS WNL, afebrile, normal neurological exam without focal deficits, physical exam findings as above. Given reported symptoms and physical exam findings, initial differential includes diverticulitis w/wo perforation or abscess, obstruction, renal/ureteral calculi, UTI/pyelonephritis. Labs grossly within normal limits. CT notable for sigmoid diverticulitis as well as small fat-containing umbilical hernia. My interpretation is in agreement with the radiologist's interpretation. Results discussed with patient and all questions answered. Will treat with course of Augmentin. Return precautions discussed at bedside. Will refer to General surgery for follow-up regarding umbilical hernia. Patient verbalized understanding of and agreement with plan. Differential Diagnosis Differential Diagnoses: The differential diagnosis associated with the presentation includes As per [facility] Admission/Observation Consideration of admission/observation: Escalation of care including admission/observation considered Patient would have been admitted to the hospital had their work up had any findings where hospital admission was appropriate and their clinical presentation warranted hospital admission. Lab Data [facility] Lab Attestation statement: I reviewed the patient's lab results. As per [facility] 09/12/24 09:50 09/12/24 09:50 Labs: Lab Results 09/12/24 Range/Units 09:50 WBC 8.6 (4.8-10.8) X10*3/uL RBC 4.65 (4.60-5.80) X10*6/uL Hgb 14.8 (14.0-18.0) g/dl Hct 42.5 (42.0-52.0) % MCV 91.4 (80.0-98.0) fL MCH 31.8 (27.0-33.0) pg MCHC 34.8 (31.0-36.0) g/dl RDW 11.1 (11.0-16.0) % Plt Count 293 (160-400) X10*3/uL MPV 9.8 (9.4-12.4) fL Immature Gran % (Auto) 0.4 (0.0-0.4) % Neut % (Auto) 73.5 H (45-73) % Lymph % (Auto) 14.8 L (20-40) % Mcmullen % (Auto) 9.5 (2-11) % Eos % (Auto) 1.3 (0-4) % Baso % (Auto) 0.5 (0-2) % Lymph # (Auto) 1.3 (1.2-4.9) X10*3/uL Mcmullen # (Auto) 0.8 (0.1-1.2) X10*3/uL Eos # (Auto) 0.1 (0.0-0.4) X10*3/uL Baso # (Auto) 0.0 (0.0-0.2) X10*3/uL Abs Immat Gran (auto) 0.03 (0.00-0.03) X10*3/uL Absolute Neuts (auto) 6.3 (2.0-8.3) x10*3/uL Absolute Nucleated RBC 0.000 (0.0-0.012) X10*3/uL Nucleated RBC % (auto) 0.0 (0.0-0.2) /100WBC Sodium 139 (135-145) mmol/L Potassium 4.2 (3.3-5.1) mmol/L Chloride 106 (96-108) mmol/L Carbon Dioxide 28 (22-29) mmol/L Anion Gap 9 L (12-20) BUN 13 (9-16) mg/dL Creatinine 0.94 (0.5-1.4) mg/dL Estim Creat Clear Calc 133.0 Estimated GFR > 60 Random Glucose 92 (60-115) mg/dL Calcium 8.8 D (8.4-10.2) mg/dL Total Bilirubin 0.7 (0.0-1.0) mg/dL Direct Bilirubin 0.3 (0.0-0.5) mg/dL AST 21 (5-37) U/L ALT 25 (0-40) U/L Alkaline Phosphatase 73 (39-117) U/L Total Protein 7.4 (6.5-8.0) g/dL Albumin 3.8 (3.5-5.0) g/dL Lipase 20 (8-78) U/L Independent Interpretation I performed an independent interpretation of an: CT Scan Interpretation: CT abdomen pelvis notable for sigmoid diverticulitis and small fat containing umbilical hernia Radiology Impression Discussion of test interpretation with radiology: I have reviewed the radiologist's reading. Radiologist Impression: CT/CT abdomen pelvis w IV con IMPRESSION: 1. Acute Diverticulitis of the sigmoid colon. 2. Enlarging fat-containing umbilical hernia. External Record Review External record reviewed: Inpatient record, Office record and Outpatient record Prescription Management I considered prescription management with: Antibiotic Discharge Plan Discharge Clinical Impression: Diverticulitis of sigmoid colon Patient Disposition: Home, Self-Care Instructions: Amoxicillin/Clavulanate Potassium (By mouth), Diverticulitis (ED), Diverticulitis Diet (ED) Additional Instructions: You were evaluated in the emergency department today for abdominal pain. Your CT scan showed evidence of diverticulitis. It also noted an umbiilical hernia which was larger than on your previous CT scan. You can follow up with general surgery to discuss management of the hernia. You are being treated for diverticulitis with an antibiotic. It is important that you complete the full course as prescribed even if your symptoms improve. Follow up with your primary care provider. Return emergency department if you develop worsening pain, persistent vomiting, fever, blood in your stool or any other concerning symptoms. Prescriptions: New amoxicillin-pot clavulanate 875-125 mg tablet 1 tab PO BID Qty: 19 0RF No Action Mounjaro 10 mg/0.5 mL pen injector 10 mg subcut QWEEK metoprolol tartrate 50 mg tablet 50 mg PO BID Qty: 180 3RF Xarelto 20 mg tablet 20 mg PO DAILY@2000 90 Days Qty: 90 3RF Multaq 400 mg tablet 400 mg PO BID 90 Days Qty: 180 3RF Referrals: [facility] [place] [facility] [Provider Group] ( CT/CT abdomen pelvis w IV con IMPRESSION: 1. Acute Diverticulitis of the sigmoid colon. 2. Enlarging fat-containing umbilical hernia.) Print Language: Maori
[2024-09-12 09:54] LABS: MANUAL DIFF FLAG NO
[2024-09-12 09:57] LABS: Basophils Percent Auto 0.5 % (0-2); Eosinophils Absolute Auto 0.1 X10*3/uL (0.0-0.4); Eosinophils Percent Auto 1.3 % (0-4); Hematocrit 42.5 % (42.0-52.0); Hemoglobin 14.8 g/dl (14.0-18.0); Imm Gran Abs Auto 0.03 X10*3/uL (0.00-0.03); Imm Gran Pct Auto 0.4 % (0.0-0.4); Lymphocytes Absolute Auto 1.3 X10*3/uL (1.2-4.9); Lymphocytes Percent Auto 14.8 % (20-40); Mean Corpuscular HGB Conc 34.8 g/dl (31.0-36.0); Mean Corpuscular Hemoglobin 31.8 pg (27.0-33.0); Mean Corpuscular Volume 91.4 fL (80.0-98.0); Mean Platelet Volume 9.8 fL (9.4-12.4); Monocytes Absolute Auto 0.8 X10*3/uL (0.1-1.2); Monocytes Percent Auto 9.5 % (2-11); Neutrophils Absolute Auto 6.3 x10*3/uL (2.0-8.3); Neutrophils Percent Auto 73.5 % (45-73); Platelet Count 293 X10*3/uL (160-400); Red Blood Count 4.65 X10*6/uL (4.60-5.80); Red Cell Distribution Width 11.1 % (11.0-16.0); White Blood Count 8.6 X10*3/uL (4.8-10.8)
[2024-09-12 10:09] LABS: Alanine Aminotransferase 25 U/L (0-40); Albumin Level 3.8 g/dL (3.5-5.0); Alkaline Phosphatase 73 U/L (39-117); Anion Gap 9 (12-20); Aspartate Amino Transferase 21 U/L (5-37); Bilirubin Direct 0.3 mg/dL (0.0-0.5); Bilirubin Total 0.7 mg/dL (0.0-1.0); Blood Urea Nitrogen 13 mg/dL (9-16); Calcium 8.8 mg/dL (8.4-10.2); Carbon Dioxide 28 mmol/L (22-29); Chloride 106 mmol/L (96-108); Estimated Glomerular Filt Rate > 60; Glucose Random 92 mg/dL (60-115); Lipase 20 U/L (8-78); Potassium 4.2 mmol/L (3.3-5.1); Sodium 139 mmol/L (135-145); Total Protein 7.4 g/dL (6.5-8.0)
[2024-09-12 10:41] VITALS: RESP 18
[2024-09-12] MEDS: HYDROmorphone HCl 1 MG/ML SYRINGE IVPUSH ×2 (10:41→15:04)
[2024-09-12] MEDS: iohexoL 350 MG/ML 100 ML INFUS..BTL IV (11:34)
[2024-09-12 12:34] VITALS: BP 111/59; PULSE 70; RESP 18; O2SAT 96
[2024-09-12 15:04] VITALS: RESP 16
[2024-09-12 15:05] VITALS: BP 137/83; PULSE 75; RESP 16; TEMP 36.4; O2SAT 98
[2024-09-12] MEDS: Amoxicillin/Potassium Clav 875 MG TABLET PO (15:40)
[2024-09-12 15:42] VITALS: BP 137/83; PULSE 75; RESP 16; TEMP 36.4; O2SAT 98
== END 2024-09-12 15:45 | disposition home or self-care (01) ==
PROVIDERS: Emergency Provider Emergency Medicine Emergency Medical Services; PCP Internal Medicine
DX: K57.30 Diverticulosis of large intestine without perforation or abscess without bleeding (principal); R10.30 Lower abdominal pain, unspecified; I10 Essential (primary) hypertension; I48.91 Unspecified atrial fibrillation; Z79.01 Long term (current) use of anticoagulants; Z79.899 Other long term (current) drug therapy
CPT/HCPCS: 36415; 74177; 80048; 80076; 83690; 85025; 96374; 96376; 99284; J1171; Q9967

== ENCOUNTER 2024-12-05 08:27 | Outpatient (AMB) | payer OTHER, SELFPAY ==
[2024-12-05 08:28] VITALS: BP 110/70; PULSE 74; BMI 48.4
--- NOTE | 2024-12-05 08:28 | MHC.OFFVIS ---
Vital Signs 12/05/24 08:28 Height 6 ft 2 in Weight 376 lb 15.847 oz BMI 48.4 BP 110/70 Blood Pressure Location Lt brachial Position Sitting Pulse 74 Intake Visit Reasons: 1 year follow up w/ EKG Intake Note: 1 year follow-up with ekg feeling good Director Erp Required: No Allergies No Known Allergies Allergy (Verified 09/12/24 09:42) Medication List - Last Reconciled 12/05/24 by Steve Solano MD dronedarone (Multaq) 400 mg PO BID 90 days metoprolol tartrate 50 mg PO BID rivaroxaban (Xarelto) 20 mg PO DAILY@1999 90 days HPI Comments Details: Ladarius comes for follow-up. Overall from cardiac perspective he has been doing well. However he was put on a lot of weight since his Mounjaro was discontinued. He says he does not feel well with a weight gain. He denies any actual symptoms of significant shortness of breath, orthopnea, PND. Denies any exertional chest pain. No prolonged palpitation irregular heartbeat. He had his CPAP regularly. He said he had no side effects to Mounjaro therapy and had lost a lot of weight. He was eating high-protein diet. He has not lost a lot of muscle mass. [facility], [facility] Medical History Obstructive sleep apnea HTN (hypertension) Atrial fibrillation with RVR Social History Household Members: Family Housing: House Do you presently have visiting nurse or other home services: No Alcohol intake: never Patient Tobacco Use Status: Never used Tobacco Advance Directives Date on File: 06/01/22 service: No Review of Systems Const Denies chills, Denies fatigue, Denies fever(s), Denies frequent falls, Denies weakness, Denies weight gain and Denies weight loss ENT Denies dizziness Card Denies chest pain, Denies leg edema, Denies lightheadedness, Denies palpitations, Denies dyspnea, Denies dyspnea on exertion, Denies orthopnea and Denies other (loss of consciousness) Resp Denies cough, Denies dyspnea and Denies dyspnea on exertion GI Denies hematochezia and Denies change in stool character Musc Denies abnormal gait, Denies muscle weakness, Denies numbness, Denies radiating pain into limb and Denies tingling Neuro Denies abnormal gait, Denies dizziness, Denies frequent falls, Denies numbness, Denies tingling and Denies weakness Endo Denies fatigue and Denies palpitations Physical Exam Vital Signs: BMI result Body Mass Index 48.4 Const General: cooperative, comfortable, no acute distress, alert and awake Nutritional Appearance: obese morbidly obese Orientation/consciousness: patient oriented x3 Neck Neck: Yes trachea midline, Yes supple and Yes no JVD Resp Effort & Inspection: normal respiratory effort Auscultation: clear to auscultation bilaterally Cardio Jugular venous distension: no JVD Palpation: normal PMI Rate: regular rate Rhythm: regular rhythm Heart sounds: S1 normal heart sound present, S2 normal heart sound present, no click, no gallops, no murmurs and no rubs GI Auscultation: normal bowel sounds Skin General skin exam: no rashes or lesions noted Neuro General: patient oriented x3 and no focal motor deficits Extrem General: Yes no clubbing, cyanosis or edema Office Procedures EKG Details: EKG shows normal sinus rhythm with incomplete right bundle-branch block [id number], Complete Assessment & Plan Assessment & Plan (1) Paroxysmal atrial fibrillation: Code(s): I48.0 - Paroxysmal atrial fibrillation Category: Medical Plan: Paroxysmal atrial fibrillation which has remained suppressed and has done extremely well with rhythm control approach. His blood pressure is better controlled. Continue antiarrhythmic drug therapy and rhythm control approach and continue Multaq. EKGs will be needed every 3 months. This was discussed with him. Continue full oral anticoagulation, currently on Xarelto 20 mg daily. Semi annual renal function test should be pursued. We had a long discussion about weight loss. He will benefit greatly from significant weight loss in future reduction atrial fibrillation cardiovascular outcomes. Have taken the liberty therefore to prescribe Mounjaro which he tolerated well. Side effects were discussed. He understands agrees. (2) HTN (hypertension): Code(s): I10 - Essential (primary) hypertension Category: Medical Plan: Hypertension which is currently well optimized with treatment of metoprolol as well as with CPAP therapy. Continue the same. Continue aggressive weight loss program as above. Low-salt diet was discussed. Blood pressure is well optimized at this point time. Target goal blood pressure less than 130/84. Will follow up in the clinic every 3 months for EKG in 1 year with me. Thank you for allowing me to partake in his care Medications: New tirzepatide (Mounjaro) 5 mg (0.5 mL) subcut QWEEK 2 mL 5RF Coding Level of Care Code Est Pt Level 4 (82328) Complex EM visit Add On G2211 Diagnoses Paroxysmal atrial fibrillation I48.0 HTN (hypertension) I10 CPT Codes EKG - CPT: 33904-[id number], Complete ([id number])
== END 2024-12-05 08:56 | disposition home or self-care (01) ==
PROVIDERS: PCP Internal Medicine; Visit Provider Internal Medicine Cardiovascular Disease
DX: I48.0 Paroxysmal atrial fibrillation (principal); I10 Essential (primary) hypertension
CPT/HCPCS: 93010; 99214

== ENCOUNTER → 2024-12-05 08:27 | Outpatient (BNVA) | payer OTHER, SELFPAY | PROVIDERS: PCP Internal Medicine; Visit Provider Internal Medicine Cardiovascular Disease | DX: I48.0 Paroxysmal atrial fibrillation (principal); I10 Essential (primary) hypertension | CPT/HCPCS: 93005 ==

== ENCOUNTER → 2025-03-12 08:24 | Outpatient (BNVA) | payer OTHER, SELFPAY | PROVIDERS: PCP Internal Medicine; Visit Provider Internal Medicine Cardiovascular Disease ==